=== PATIENT | female | born 1950 | race Caucasian/White ===

== ENCOUNTER 2020-08-22 16:11 | Outpatient (REF) | payer MEDICARE, BC, SELFPAY ==
--- NOTE | 2020-08-22 16:21 | XR_ITS ---
EXAMINATION: XR ANKLE, RIGHT CLINICAL INFORMATION: Right ankle pain COMPARISON: None TECHNIQUE: AP, lateral, and mortise views of the right ankle. FINDINGS: No fracture or dislocation. The ankle mortise is congruent. Corticated ossification at the tip of the lateral malleolus. Mild lateral soft tissue swelling. No ankle joint effusion. Small Achilles heel spur. XR/XR ankle RT min 3V IMPRESSION: Evidence of chronic trauma at the lateral malleolus with corticated ossific density. Mild lateral soft tissue swelling. No acute abnormality. No significant arthritic changes otherwise.
--- NOTE | 2020-08-22 16:21 | XR_ITS ---
EXAMINATION: XR KNEE, LEFT CLINICAL INFORMATION: Left knee pain COMPARISON: None TECHNIQUE: Four views of the left knee. This includes AP upright view. FINDINGS: There is no acute fracture or subluxation. There is moderate lateral compartment joint space narrowing. Prominent tricompartmental marginal osteophytes are present. Moderate joint effusion. XR/XR knee LT 4V IMPRESSION: Joint effusion present. Tricompartmental degenerative changes with osteophyte formation. Moderate lateral compartment narrowing.
== END 2020-08-22 16:12 | disposition home or self-care (01) ==
LOC: HO.XRAY 16:11
PROVIDERS: PCP Internal Medicine; Visit Provider Internal Medicine
DX: M25.561 Pain in right knee (principal); M25.571 Pain in right ankle and joints of right foot
CPT/HCPCS: 73564; 73610

== ENCOUNTER → 2020-09-13 13:55 | Outpatient (BNVA) | payer MEDICARE, BC, SELFPAY | PROVIDERS: PCP Internal Medicine; Visit Provider Physician Assistant | DX: M19.071 Primary osteoarthritis, right ankle and foot (principal); M17.12 Unilateral primary osteoarthritis, left knee | CPT/HCPCS: 99202 ==

== ENCOUNTER 2021-01-03 14:25 | Outpatient (REF) | payer MEDICARE, BC, SELFPAY ==
[2021-01-03 16:23] LABS: MANUAL DIFF FLAG NO
[2021-01-03 16:35] LABS: Basophils Percent Auto 0.6 % (0-2); Eosinophils Absolute Auto 0.3 X10*3/uL (0.0-0.4); Eosinophils Percent Auto 4.3 % (0-4); Hematocrit 42.9 % (37-47); Hemoglobin 13.9 g/dl (12.0-16.0); Imm Gran Abs Auto 0.02 X10*3/uL (0.00-0.03); Imm Gran Pct Auto 0.3 % (0.0-0.4); Lymphocytes Absolute Auto 2.1 X10*3/uL (1.2-4.9); Lymphocytes Percent Auto 31.3 % (20-40); Mean Corpuscular HGB Conc 32.4 g/dl (31.0-35.0); Mean Corpuscular Volume 95.8 fL (80-98); Monocytes Absolute Auto 0.6 X10*3/uL (0.1-1.2); Monocytes Percent Auto 8.8 % (2-11); Neutrophils Absolute Auto 3.7 X10*3/uL (2.0-8.3); Neutrophils Percent Auto 54.7 % (45-73); Platelet Count 251 X10*3/uL (160-400); Red Blood Count 4.48 X10*6/uL (4.20-5.50); Red Cell Distribution Width 13.7 % (11.0-16.0); White Blood Count 6.8 X10*3/uL (4.8-10.8)
[2021-01-03 16:51] LABS: Alanine Aminotransferase 21 U/L (0-31); Albumin Level 4.4 g/dL (3.5-5.0); Alkaline Phosphatase 55 U/L (39-117); Anion Gap 11 (12-20); Aspartate Amino Transferase 16 U/L (5-31); Bilirubin Total 0.3 mg/dL (0.0-1.0); Blood Urea Nitrogen 14 mg/dL (9-16); Calcium 9.2 mg/dL (8.4-10.2); Carbon Dioxide 31 mmol/L (22-29); Chloride 104 mmol/L (96-108); Estimated Glomerular Filt Rate > 60; Glucose Random 84 mg/dL (60-115); Potassium 4.9 mmol/L (3.3-5.1); Sodium 141 mmol/L (135-145); Total Protein 7.7 g/dL (6.5-8.0)
[2021-01-03 17:14] LABS: Free T4 (Free Thyroxine) 1.05 ng/dL (0.71-1.85); Thyroid Stimulating Hormone 2.11 uIU/mL (0.32-4.0)
[2021-01-03 17:18] LABS: Vitamin B12 295 pg/mL (200-900)
== END 2021-01-03 14:26 | disposition home or self-care (01) ==
LOC: HO.HMGCLDS 14:25
PROVIDERS: PCP Internal Medicine; Visit Provider Internal Medicine
DX: I10 Essential (primary) hypertension (principal); E03.9 Hypothyroidism, unspecified; E78.00 Pure hypercholesterolemia, unspecified; R53.83 Other fatigue
CPT/HCPCS: 36415; 80053; 82607; 84439; 84443; 85025

== ENCOUNTER 2021-07-01 09:18 | Outpatient (REF) | payer MEDICARE, BC, SELFPAY ==
[2021-07-01 11:17] LABS: MANUAL DIFF FLAG NO
[2021-07-01 11:31] LABS: Basophils Absolute Auto 0.1 X10*3/uL (0.0-0.2); Eosinophils Absolute Auto 0.2 X10*3/uL (0.0-0.4); Eosinophils Percent Auto 4.6 % (0-4); Hematocrit 44.4 % (37-47); Hemoglobin 14.5 g/dl (12.0-16.0); Imm Gran Abs Auto 0.02 X10*3/uL (0.00-0.03); Imm Gran Pct Auto 0.4 % (0.0-0.4); Lymphocytes Absolute Auto 2.1 X10*3/uL (1.2-4.9); Lymphocytes Percent Auto 39.2 % (20-40); Mean Corpuscular HGB Conc 32.7 g/dl (31.0-35.0); Mean Corpuscular Hemoglobin 30.8 pg (27.0-33.0); Mean Corpuscular Volume 94.3 fL (80-98); Mean Platelet Volume 10.1 fL (9.4-12.3); Monocytes Absolute Auto 0.5 X10*3/uL (0.1-1.2); Monocytes Percent Auto 8.9 % (2-11); Neutrophils Absolute Auto 2.4 X10*3/uL (2.0-8.3); Neutrophils Percent Auto 45.9 % (45-73); Platelet Count 257 X10*3/uL (160-400); Red Blood Count 4.71 X10*6/uL (4.20-5.50); Red Cell Distribution Width 13.3 % (11.0-16.0); White Blood Count 5.3 X10*3/uL (4.8-10.8)
[2021-07-01 11:52] LABS: Alanine Aminotransferase 22 U/L (0-31); Albumin Level 4.3 g/dL (3.5-5.0); Alkaline Phosphatase 50 U/L (39-117); Anion Gap 12 (12-20); Aspartate Amino Transferase 17 U/L (5-31); Bilirubin Total 0.7 mg/dL (0.0-1.0); Blood Urea Nitrogen 8 mg/dL (9-16); Calcium 9.3 mg/dL (8.4-10.2); Carbon Dioxide 27 mmol/L (22-29); Chloride 106 mmol/L (96-108); Cholesterol 157 mg/dL; Estimated Glomerular Filt Rate > 60; Glucose Fasting 118 mg/dL (60-99); HDL Cholesterol 48 mg/dL; LDL Cholesterol Calculated 95 mg/dl; Potassium 4.8 mmol/L (3.3-5.1); Sodium 140 mmol/L (135-145); Total Protein 7.5 g/dL (6.5-8.0); Triglycerides 72 mg/dL
[2021-07-01 12:16] LABS: Free T4 (Free Thyroxine) 1.21 ng/dL (0.71-1.85); Thyroid Stimulating Hormone 2.17 uIU/mL (0.32-4.0); Vitamin D 25-OH Total 50.7 ng/mL (>30)
== END 2021-07-01 09:19 | disposition home or self-care (01) ==
LOC: HO.HMGCLDS 09:18
PROVIDERS: PCP Internal Medicine; Visit Provider Internal Medicine
DX: I10 Essential (primary) hypertension (principal); E78.00 Pure hypercholesterolemia, unspecified; E03.9 Hypothyroidism, unspecified; E55.9 Vitamin D deficiency, unspecified
CPT/HCPCS: 36415; 80053; 80061; 82306; 84439; 84443; 85025

== ENCOUNTER 2021-12-26 15:11 | Outpatient (REF) | payer MEDICARE, BC, SELFPAY ==
[2021-12-26 16:35] LABS: MANUAL DIFF FLAG NO
[2021-12-26 16:42] LABS: Basophils Absolute Auto 0.1 X10*3/uL (0.0-0.2); Basophils Percent Auto 0.7 % (0-2); Eosinophils Absolute Auto 0.3 X10*3/uL (0.0-0.4); Eosinophils Percent Auto 3.8 % (0-4); Hematocrit 43.3 % (37.0-47.0); Hemoglobin 14.1 g/dl (12.0-16.0); Imm Gran Abs Auto 0.02 X10*3/uL (0.00-0.03); Imm Gran Pct Auto 0.3 % (0.0-0.4); Lymphocytes Absolute Auto 2.4 X10*3/uL (1.2-4.9); Lymphocytes Percent Auto 33.2 % (20-40); Mean Corpuscular HGB Conc 32.6 g/dl (31.0-35.0); Mean Corpuscular Hemoglobin 31.3 pg (27.0-33.0); Mean Corpuscular Volume 96.2 fL (80.0-98.0); Mean Platelet Volume 9.9 fL (9.4-12.3); Monocytes Absolute Auto 0.5 X10*3/uL (0.1-1.2); Monocytes Percent Auto 6.8 % (2-11); Neutrophils Absolute Auto 4.1 x10*3/uL (2.0-8.3); Neutrophils Percent Auto 55.2 % (45-73); Platelet Count 241 X10*3/uL (160-400); Red Cell Distribution Width 13.6 % (11.0-16.0); White Blood Count 7.4 X10*3/uL (4.8-10.8)
[2021-12-26 17:11] LABS: Alanine Aminotransferase 16 U/L (0-31); Albumin Level 4.3 g/dL (3.5-5.0); Alkaline Phosphatase 53 U/L (39-117); Anion Gap 13 (12-20); Aspartate Amino Transferase 16 U/L (5-31); Bilirubin Total 0.6 mg/dL (0.0-1.0); Blood Urea Nitrogen 13 mg/dL (9-16); C Reactive Protein 0.08 mg/dL (< or = 0.50); Calcium 9.5 mg/dL (8.4-10.2); Carbon Dioxide 28 mmol/L (22-29); Chloride 105 mmol/L (96-108); Estimated Glomerular Filt Rate > 60; Glucose Random 152 mg/dL (60-115); Potassium 4.5 mmol/L (3.3-5.1); Sodium 141 mmol/L (135-145); Total Protein 7.7 g/dL (6.5-8.0)
[2021-12-26 17:20] LABS: Erythrocyte Sedimentation Rate 40 MM/HR (0-20)
[2021-12-26 17:31] LABS: Free T4 (Free Thyroxine) 1.04 ng/dL (0.71-1.85); Thyroid Stimulating Hormone 2.43 uIU/mL (0.32-4.0)
[2021-12-26 17:39] LABS: Vitamin B12 281 pg/mL (200-900)
== END 2021-12-26 15:12 | disposition home or self-care (01) ==
LOC: HO.HMGCLDS 15:11
PROVIDERS: PCP Internal Medicine; Visit Provider Internal Medicine
DX: R53.83 Other fatigue (principal); E03.9 Hypothyroidism, unspecified; I10 Essential (primary) hypertension
CPT/HCPCS: 36415; 80053; 82607; 84439; 84443; 85025; 85652; 86140

== ENCOUNTER 2022-01-03 09:50 | Outpatient (REF) | payer MEDICARE, BC, SELFPAY ==
[2022-01-03 11:54] LABS: Anion Gap 10 (12-20); Blood Urea Nitrogen 11 mg/dL (9-16); Calcium 9.4 mg/dL (8.4-10.2); Carbon Dioxide 30 mmol/L (22-29); Chloride 107 mmol/L (96-108); Estimated Glomerular Filt Rate > 60; Glucose Random 112 mg/dL (60-115); Potassium 4.9 mmol/L (3.3-5.1); Sodium 142 mmol/L (135-145)
[2022-01-03 11:59] LABS: Estimated Average Glucose 120 mg/dL; Hemoglobin A1c % 5.8 %
== END 2022-01-03 09:51 | disposition home or self-care (01) ==
LOC: HO.HMGCLDS 09:50
PROVIDERS: Visit Provider Internal Medicine
DX: R73.03 Prediabetes (principal)
CPT/HCPCS: 36415; 80048; 83036

== ENCOUNTER 2022-02-14 14:20 | Outpatient (REF) | payer MEDICARE, BC, SELFPAY ==
[2022-02-14 16:50] LABS: Estimated Average Glucose 126 mg/dL; Hemoglobin A1C 152.1498 umol/L
[2022-02-14 17:05] LABS: Anion Gap 9 (12-20); Blood Urea Nitrogen 14 mg/dL (9-16); Calcium 9.4 mg/dL (8.4-10.2); Carbon Dioxide 27 mmol/L (22-29); Chloride 107 mmol/L (96-108); Estimated Glomerular Filt Rate > 60; Glucose Random 82 mg/dL (60-115); Potassium 4.1 mmol/L (3.3-5.1); Sodium 139 mmol/L (135-145)
== END 2022-02-14 14:21 | disposition home or self-care (01) ==
LOC: HO.HMGCLDS 14:20
PROVIDERS: Visit Provider Internal Medicine
DX: R73.03 Prediabetes (principal)
CPT/HCPCS: 36415; 80048; 83036

== ENCOUNTER 2022-03-21 10:56 | Outpatient (REF) | payer MEDICARE, BC, SELFPAY ==
[2022-03-21 15:45] LABS: Alanine Aminotransferase 16 U/L (0-31); Albumin Level 4.3 g/dL (3.5-5.0); Alkaline Phosphatase 54 U/L (39-117); Anion Gap 11 (12-20); Aspartate Amino Transferase 15 U/L (5-31); Bilirubin Total 0.5 mg/dL (0.0-1.0); Blood Urea Nitrogen 13 mg/dL (9-16); Calcium 8.8 mg/dL (8.4-10.2); Carbon Dioxide 29 mmol/L (22-29); Chloride 105 mmol/L (96-108); Estimated Glomerular Filt Rate > 60; Glucose Random 124 mg/dL (60-115); Potassium 4.7 mmol/L (3.3-5.1); Rheumatoid Factor < 15.0 IU/mL (<15.0); Sodium 140 mmol/L (135-145); Total Protein 7.7 g/dL (6.5-8.0)
[2022-03-21 15:48] LABS: Estimated Average Glucose 120 mg/dL; Hemoglobin A1c % 5.8 %
[2022-03-21 16:00] LABS: Erythrocyte Sedimentation Rate 57 MM/HR (0-20)
[2022-03-21 16:05] LABS: Thyroid Stimulating Hormone 2.58 uIU/mL (0.32-4.0)
[2022-03-24 14:03] LABS: Anti Nuclear Antibody Screen NEGATIVE (NEGATIVE)
== END 2022-03-21 10:57 | disposition home or self-care (01) ==
LOC: HO.HMGCLDS 10:56
PROVIDERS: PCP Internal Medicine; Visit Provider Internal Medicine
DX: E03.9 Hypothyroidism, unspecified (principal); I10 Essential (primary) hypertension; R53.83 Other fatigue; R73.03 Prediabetes
CPT/HCPCS: 36415; 80053; 83036; 84439; 84443; 85652; 86038; 86039; 86431

== ENCOUNTER 2022-05-21 15:25 | Outpatient (REF) | payer MEDICARE, BC, SELFPAY ==
[2022-05-21 17:03] LABS: Estimated Average Glucose 126 mg/dL
[2022-05-21 17:33] LABS: Erythrocyte Sedimentation Rate 25 MM/HR (0-20)
== END 2022-05-21 15:26 | disposition home or self-care (01) ==
LOC: HO.HMGCLDS 15:25
PROVIDERS: PCP Internal Medicine; Visit Provider Internal Medicine
DX: I10 Essential (primary) hypertension (principal); R53.83 Other fatigue; E03.9 Hypothyroidism, unspecified
CPT/HCPCS: 36415; 80048; 83036; 84439; 84443; 85025; 85652; 86140

== ENCOUNTER 2022-05-23 11:04 | Outpatient (REF) | payer MEDICARE, BC, SELFPAY ==
[2022-05-23 13:54] LABS: MANUAL DIFF FLAG NO
[2022-05-23 14:01] LABS: Basophils Percent Auto 0.5 % (0-2); Eosinophils Absolute Auto 0.2 X10*3/uL (0.0-0.4); Hemoglobin 13.8 g/dl (12.0-16.0); Imm Gran Abs Auto 0.03 X10*3/uL (0.00-0.03); Imm Gran Pct Auto 0.4 % (0.0-0.4); Lymphocytes Absolute Auto 2.4 X10*3/uL (1.2-4.9); Lymphocytes Percent Auto 32.9 % (20-40); Mean Corpuscular HGB Conc 32.9 g/dl (31.0-35.0); Mean Corpuscular Hemoglobin 30.9 pg (27.0-33.0); Monocytes Absolute Auto 0.4 X10*3/uL (0.1-1.2); Monocytes Percent Auto 5.6 % (2-11); Neutrophils Absolute Auto 4.2 x10*3/uL (2.0-8.3); Neutrophils Percent Auto 57.6 % (45-73); Platelet Count 237 X10*3/uL (160-400); Red Blood Count 4.47 X10*6/uL (4.20-5.50); Red Cell Distribution Width 13.8 % (11.0-16.0); White Blood Count 7.3 X10*3/uL (4.8-10.8)
== END 2022-05-23 11:05 | disposition home or self-care (01) ==
LOC: HO.HMGCLDS 11:04
PROVIDERS: PCP Internal Medicine; Visit Provider Internal Medicine
DX: I10 Essential (primary) hypertension (principal); R53.83 Other fatigue; E03.9 Hypothyroidism, unspecified
CPT/HCPCS: 36415; 85025

== ENCOUNTER 2022-09-11 10:22 | Outpatient (REF) | payer MEDICARE, BC, SELFPAY ==
[2022-09-11 14:12] LABS: MANUAL DIFF FLAG NO
[2022-09-11 14:35] LABS: Basophils Percent Auto 0.5 % (0-2); Eosinophils Absolute Auto 0.2 X10*3/uL (0.0-0.4); Eosinophils Percent Auto 2.7 % (0-4); Hematocrit 45.2 % (37.0-47.0); Hemoglobin 14.8 g/dl (12.0-16.0); Imm Gran Abs Auto 0.02 X10*3/uL (0.00-0.03); Imm Gran Pct Auto 0.3 % (0.0-0.4); Lymphocytes Absolute Auto 1.3 X10*3/uL (1.2-4.9); Lymphocytes Percent Auto 17.5 % (20-40); Mean Corpuscular HGB Conc 32.7 g/dl (31.0-35.0); Mean Corpuscular Hemoglobin 31.2 pg (27.0-33.0); Mean Corpuscular Volume 95.2 fL (80.0-98.0); Monocytes Absolute Auto 0.4 X10*3/uL (0.1-1.2); Monocytes Percent Auto 4.6 % (2-11); Neutrophils Absolute Auto 5.6 x10*3/uL (2.0-8.3); Neutrophils Percent Auto 74.4 % (45-73); Platelet Count 240 X10*3/uL (160-400); Red Blood Count 4.75 X10*6/uL (4.20-5.50); Red Cell Distribution Width 13.1 % (11.0-16.0); White Blood Count 7.5 X10*3/uL (4.8-10.8)
[2022-09-11 14:45] LABS: Estimated Average Glucose 123 mg/dL; Hemoglobin A1c % 5.9 %
[2022-09-11 15:06] LABS: Alanine Aminotransferase 15 U/L (0-31); Albumin Level 4.4 g/dL (3.5-5.0); Alkaline Phosphatase 51 U/L (39-117); Anion Gap 10 (12-20); Aspartate Amino Transferase 16 U/L (5-31); Bilirubin Total 0.6 mg/dL (0.0-1.0); Blood Urea Nitrogen 12 mg/dL (9-16); C Reactive Protein < 0.04 mg/dL (< or = 0.50); Calcium 9.2 mg/dL (8.4-10.2); Carbon Dioxide 27 mmol/L (22-29); Chloride 108 mmol/L (96-108); Estimated Glomerular Filt Rate > 60; Free T4 (Free Thyroxine) 1.16 ng/dL (0.71-1.85); Glucose Random 106 mg/dL (60-115); Magnesium 2.1 mg/dL (1.6-2.6); Sodium 141 mmol/L (135-145); Thyroid Stimulating Hormone 1.48 uIU/mL (0.32-4.0); Total Protein 7.3 g/dL (6.5-8.0)
[2022-09-11 15:12] LABS: Erythrocyte Sedimentation Rate 25 MM/HR (0-20)
== END 2022-09-11 10:23 | disposition home or self-care (01) ==
LOC: HO.10HDL 10:22
PROVIDERS: Visit Provider Internal Medicine
DX: R00.2 Palpitations (principal); I10 Essential (primary) hypertension; E03.9 Hypothyroidism, unspecified; R73.03 Prediabetes; M35.3 Polymyalgia rheumatica
CPT/HCPCS: 36415; 80053; 83036; 83735; 84439; 84443; 85025; 85652; 86140

== ENCOUNTER → 2022-10-08 14:49 | Outpatient (REF) | payer MEDICARE, BC, SELFPAY ==
--- NOTE | 2022-10-08 14:53 | CA_ITS ---
Transthoracic Echocardiogram Patient (Last, First, Middle): Harriet Pan, Gender: Female Date of : 1950 Age: 72 Procedure Date: 10/08/2022 Procedure Type: Transthoracic Echocardiogram Location: OP Height: 167.64 cm Weight: 79.29 kg BSA: 1.89 m2 Heart Rate: 70 bpm BP: 135 / 80 mmHg [employer]: [employer] Referring MD: Gordon Gonzalez MD Symptoms: I49.9 CARDIAC ARRHYTHMIA Study Quality: Adequate ECG Rhythm: Arrhythmia Conclusions: - The left ventricular systolic function is normal. The visually estimated ejection fraction is between 55-60%. - No obvious valvular pathology seen on this study. Findings Left Ventricle Normal left ventricular cavity size. There is normal left ventricular wall thickness. The left ventricular systolic function is normal. The visually estimated ejection fraction is between 55-60%. Diastolic function is normal for age. Due to poor endocardial definition, difficult to assess wall motion but no overt abnormality. Right Ventricle Normal right ventricular cavity size and systolic function. Atria Both atria are normal in size. Aortic Valve There is a normal trileaflet aortic valve. There is no aortic valve stenosis. There is no aortic valve regurgitation. Mitral Valve The mitral valve appears normal. There is trace mitral valve regurgitation. There is no mitral valve stenosis. Pulmonic Valve The pulmonic valve is likely normal. Tricuspid Valve There is trace tricuspid valve regurgitation. Tricuspid regurgitation envelope is inadequate for calculation of right ventricular systolic pressure. Great Vessels The asc aorta is normal in size. Venous The inferior vena cava is normal in size and collapses greater than 50% with inspiration. Pericardium/Pleural There is no evidence of pericardial effusion. Prior Study Comparison No prior study available for comparison. Recommendations, Care & Conclusions No obvious valvular pathology seen on this study. Recommend contrast in the future to improve endocardial definition. Measurements 2D Linear Measurements IVSd: 0.81 0.6-0.9/0.6-1.0 cm LVIDd: 4.20 3.9-5.3/4.2-5.9 cm LVIDd Index: 2.22 2.4-3.2/2.2-3.1 cm/m2 LVIDs: 2.67 2.0-3.6 cm LVPWd: 0.78 0.7-1.1 cm LA Diam: 3.20 2.7-3.8/3.0-4.0 cm LAIDs Index: 1.69 1.5-2.3 cm/m2 LV Mass: 124.71 67-162/88-224 g LV Mass Index: 65.99 43-95/49-115 g/m2 LVOT Diam: 1.90 3.0+(-)1.3 cm 2D Systolic Function EF 4C: 52.30 >55% EF 2C: 54.10 >55% EF BiP: 52.90 >55% Mitral Valve MV Pk E: 0.59 MV PK A: 0.70 MV Decel Time: 269.00 E/A: 0.80 E'Lateral: 5.44 E'Medial: 6.20 E/E' Med: 9.50 E/E' Lat: 10.90 PHT: 79.00 MVA PHT: 2.78 Decel [place]: 2.20 Aortic Valve AoV Pk Omar: 1.16 AoV Mn Omar: 0.77 AoV VTI: 0.25 AoV Pk Grad: 5.00 Aov Mn Grad: 3.00 KEITH Cont.VTI: 2.09 LVOT LVOT Pk Omar: 0.95 LVOT Mn Omar: 0.61 LVOT VTI: 0.18 LVOT Pk Grad: 4.00 LVOT Mn Grad: 2.00 LVOT Diam: 1.90 LVOT Area: 2.84 Diastolic Function MV Pk E: 0.59 MV Pk A: 0.70 E/A: 0.80 E'Medial: 6.20 E/E' Med: 9.50 E' Laterial: 5.44 E/E' Lat: 10.90 Right Ventricle TAPSE (mm): 15.70 TVS' Omar: 13.90 Tricuspid Valve RA Press: 3.00 Great Vessels Aorta Sinus of Valsalva: 3.00 2.0-3.5 cm Ao Asc: 3.20 2.1-3.4 cm Pulmonary Valve PV Pk Omar: 0.81 Peak PV Grad: 3.00 Updated in Other Vendor System with Status of Final Phani Paris MD electronically signed on 10/10/2022 12:21:39 PM with status of Final
== END ==
LOC: HO.CARD 14:49
PROVIDERS: Visit Provider Internal Medicine
DX: I49.9 Cardiac arrhythmia, unspecified (principal)
CPT/HCPCS: 93306

== ENCOUNTER 2022-12-02 07:56 | Emergency (ER) | payer MEDICARE, BC, SELFPAY ==
[2022-12-02 08:02] VITALS: BP 116/72; PULSE 90; O2SAT 98
[2022-12-02 08:06] VITALS: BP 137/86; PULSE 103; RESP 16; TEMP 37.3; O2SAT 94; BMI 27.4
--- NOTE | 2022-12-02 08:30 | ED.NAVMDI ---
HPI - Nausea/Vomiting/Diarrhea General Chief complaint: Nausea/Vomiting/Diarrhea Stated complaint: N/V/D FOR HOURS PER EMS Time Seen by Provider: 12/02/22 08:05 Source: patient Mode of arrival: EMS Limitations: no limitations History of Present Illness HPI Narrative: Pt is a 72y/o female with PMHx of hypothyroidism, mitral valve prolapse, polymyalgia presenting with vomiting and diarrhea. Pt states her symptoms began around 2am this morning. Pt states she has vomited 4 times and had multiple episodes of liquid stool. Pt states she has a fullness feeling in her belly but denies pain. Pt denies blood in stool or vomit. Pt denies fevers.Pt denies sick contacts but does state that she lives with her son who works in a [place] [facility] [place] [facility]. Pt denies recent travel, antibiotic use, hospitalizations. Associated nausea: Yes Related Data Home Medications Medication Instructions Recorded Confirmed atenolol 25 mg tablet 25 mg PO DAILY 09/13/20 levothyroxine 25 mcg tablet 25 mcg PO DAILY 09/13/20 (Synthroid) rosuvastatin 10 mg tablet 10 mg PO DAILY 09/13/20 Previous Rx's Medication Instructions Recorded ondansetron 4 mg disintegrating 4 mg PO Q6H PRN nausea and 12/02/22 tablet vomiting #10 tabs Allergies Allergy/AdvReac Type Severity Reaction Status Date / Time No Known Allergies Allergy Verified 09/13/20 14:00 Review of Systems Review of Systems: Yes all other systems are reviewed and are negative Constitutional: Constitutional: Reports no additional constitutional complaints, Denies body ache(s), Denies chills, Denies fever(s), Denies headache(s) and Denies weakness Eyes: Eyes: Reports no additional eye complaints and Denies change in vision ENT: Reports system reviewed and no additional complaints, except as documented, Denies dizziness, Denies headache(s), Denies nasal congestion, Denies nasal discharge and Denies neck pain Cardiovascular: Cardiovascular: Reports no additional cardiovascular complaints, Denies chest pain, Denies leg edema and Denies dyspnea Respiratory: Respiratory: Reports no additional respiratory complaints, Denies cough and Denies dyspnea Gastrointestinal: Gastrointestinal: Reports no additional gastrointestinal complaints, Denies abdominal pain, Denies hematochezia, Reports diarrhea, Reports nausea, Reports vomiting and Denies hematemesis Genitourinary: Genitourinary: Reports no additional female genitourinary complaints and Denies dysuria Musculoskeletal: Musculoskeletal: Reports no additional musculoskeletal complaints, Denies back pain and Denies neck pain Integumentary/Breasts: Skin/Breast: Reports system reviewed and no additional complaints, except as docu and Denies rash Neurologic: Reports system reviewed and no additional complaints, except as documented, Denies dizziness, Denies headache(s) and Denies weakness PMFSH Past Medical History Attestation statement: The following information was validated with the patient. Source: old records reviewed and nursing notes reviewed Medical History Arrhythmia Hypothyroid Surgical History Hx of tonsillectomy Social History Social History Advance Directives: No Advance Directives Information Provided: Yes Current occupational status: retired Physical Exam Vital Signs: Vital Signs: Last Vital Signs Temp 99.1 F 12/02/22 08:06 Pulse 103 H 12/02/22 08:06 Resp 16 12/02/22 08:06 BP 137/86 12/02/22 08:06 Pulse Ox 94 12/02/22 08:06 O2 Del Method 12/02/22 08:06 BMI result Body Mass Index 27.4 Const: General: cooperative, healthy appearing, comfortable and no acute distress Orientation/consciousness: patient oriented x3 Limitations: no limitations HEENT: Head: Yes normal to inspection Ears: hearing grossly normal bilaterally General nose exam: Normal external nose present Face and sinus: Yes normal facial exam Mouth: Normal oral and palatal mucosa present Eyes: General: appearance normal, both eyes and all related structures Pupils: Equal, round and reactive pupils present Neck: Neck: Yes normal visual inspection and Yes full ROM Chest: Chest palpation & inspection: normal inspection of the chest Resp: Effort & Inspection: normal respiratory effort Auscultation: clear to auscultation bilaterally Cardio: Rate: regular rate Rhythm: regular rhythm Peripheral pulses: Peripheral pulses 2+ throughout GI: Inspection: Yes normal to inspection Palpation (GI): Soft to palpation and nontender Auscultation: normal bowel sounds Skin: General skin exam: no rashes or lesions noted Neuro: General: patient oriented x3 and moves all extremities Cranial nerves: Yes Equal, round and reactive pupils present Cognition (Neuro): normal cognition Extrem: General: Yes normal to inspection Course Course Course Narrative: Labs show mild leukocytosis with no shift. Viral testing is negative. Patient is tolerating p.o. with no additional vomiting episodes. Repeat abdominal exam is unchanged. No focal abdominal pain on exam. Patient did have additional episode of diarrhea here. Likely gastroenteritis. Son is at the bedside reports he has had similar symptoms. Recommend supportive care at home with Zofran p.r.n., increasing fluids. Reviewed worrisome signs and symptoms of when to return to the emergency room. Comfortable plan for discharge home. Medications Administered Discontinued Medications Generic Name Dose Route Start Last Admin Trade Name Freq PRN Reason Stop Dose Admin Ondansetron HCl 4 mg 12/02/22 08:28 12/02/22 10:45 Ondansetron Odt 4 Mg Tab.Rapdis TRANSLINGU 12/02/22 08:29 4 mg ONCE ONE Administration Medical Decision Making Medical Decision Making [facility] Narrative: 72y/o female with PMH of hypothyroidism, mitral valve prolapse, polymyalgia presenting with vomiting and diarrhea for 6 hours, no focal abdominal pain, no fever, overall nontoxic appearing. Likely viral syndrome. Will obtain labs, viral testing and give antiemetic with po challenge following. Less likely c diff colitis (no recent antibiotics, no recent hospitalizations or travel), diverticulitis, appendicitis, infectious diarrhea Differential Diagnosis Differential Diagnoses: The differential diagnosis associated with the presentation includes see above Lab Data [facility] Lab Attestation statement: I reviewed the patient's lab results. 12/02/22 08:51 12/02/22 08:51 Labs: Lab Results 12/02/22 12/02/22 12/02/22 Range/Units 08:51 08:51 08:51 WBC 13.1 H (4.8-10.8) X10*3/uL RBC 4.86 (4.20-5.50) X10*6/uL Hgb 15.0 (12.0-16.0) g/dl Hct 45.4 (37.0-47.0) % MCV 93.4 (80.0-98.0) fL MCH 30.9 (27.0-33.0) pg MCHC 33.0 (31.0-35.0) g/dl RDW 13.3 (11.0-16.0) % Plt Count 209 (160-400) X10*3/uL MPV 9.4 (9.4-12.3) fL Immature Gran % (Auto) 0.3 (0.0-0.4) % Neut % (Auto) 93.2 H (45-73) % Lymph % (Auto) 2.7 L (20-40) % [place] % (Auto) 3.1 (2-11) % Eos % (Auto) 0.5 (0-4) % Baso % (Auto) 0.2 (0-2) % Lymph # (Auto) 0.4 L (1.2-4.9) X10*3/uL [place] # (Auto) 0.4 (0.1-1.2) X10*3/uL Eos # (Auto) 0.1 (0.0-0.4) X10*3/uL Baso # (Auto) 0.0 (0.0-0.2) X10*3/uL Abs Immat Gran (auto) 0.04 H (0.00-0.03) X10*3/uL Absolute Neuts (auto) 12.2 H (2.0-8.3) x10*3/uL Absolute Nucleated RBC 0.000 (0.0-0.012) X10*3/uL Nucleated RBC % (auto) 0.0 (0.0-0.2) /100WBC Smear Tech's Comments VERIFIED Sodium 142 (135-145) mmol/L Potassium 4.9 D (3.3-5.1) mmol/L Chloride 108 (96-108) mmol/L Carbon Dioxide 25 (22-29) mmol/L Anion Gap 14 (12-20) BUN 12 (9-16) mg/dL Creatinine 0.81 (0.5-1.4) mg/dL Estim Creat Clear Calc 64.9 Estimated GFR > 60 Random Glucose 138 H (60-115) mg/dL Calcium 9.4 (8.4-10.2) mg/dL Total Bilirubin 0.9 (0.0-1.0) mg/dL Direct Bilirubin 0.2 (0.0-0.5) mg/dL AST 18 (5-31) U/L ALT 17 (0-31) U/L Alkaline Phosphatase 53 (39-117) U/L Total Protein 7.6 (6.5-8.0) g/dL Albumin 4.3 (3.5-5.0) g/dL Influenza Type A (PCR) NEGATIVE (Negative) Influenza Type B (PCR) NEGATIVE (Negative) RSV RNA Qual (PCR) NEGATIVE (Negative) SARS-CoV-2 RNA (RT-PCR) NEGATIVE (Negative) Independent Historian Clinical information obtained from an independent historian. History obtained from or confirmed by: Other (son) Discharge Plan Discharge Clinical Impression: Gastroenteritis Patient Disposition: Home, Self-Care Instructions: Gastroenteritis (ED) Additional Instructions: Your lab work and viral testing are all reassuring You likely have a viral Increase fluids at home. Expect that you may still have some diarrhea or occasional vomiting over the next day or 2. Use and nausea medicine as needed Return for severe pain, fever, multiple episodes of vomiting and inability to tolerate liquids Prescriptions: New ondansetron 4 mg tablet,disintegrating 4 mg PO Q6H PRN (Reason: nausea and vomiting) Qty: 10 0RF Referrals: Gordon Gonzalez MD [Primary Care Provider] - 1 week Interventions: ED Discharge Assessment Last Done: 12/02/22 10:46 Discharge Date/Time: 12/02/22 10:46
[2022-12-02 09:02] LABS: Basophils Percent Auto 0.2 % (0-2); Eosinophils Absolute Auto 0.1 X10*3/uL (0.0-0.4); Eosinophils Percent Auto 0.5 % (0-4); Hematocrit 45.4 % (37.0-47.0); Imm Gran Abs Auto 0.04 X10*3/uL (0.00-0.03); Imm Gran Pct Auto 0.3 % (0.0-0.4); Lymphocytes Absolute Auto 0.4 X10*3/uL (1.2-4.9); Lymphocytes Percent Auto 2.7 % (20-40); MANUAL DIFF FLAG SCAN; Mean Corpuscular Hemoglobin 30.9 pg (27.0-33.0); Mean Corpuscular Volume 93.4 fL (80.0-98.0); Mean Platelet Volume 9.4 fL (9.4-12.3); Monocytes Absolute Auto 0.4 X10*3/uL (0.1-1.2); Monocytes Percent Auto 3.1 % (2-11); Neutrophils Absolute Auto 12.2 x10*3/uL (2.0-8.3); Neutrophils Percent Auto 93.2 % (45-73); Platelet Count 209 X10*3/uL (160-400); Red Blood Count 4.86 X10*6/uL (4.20-5.50); Red Cell Distribution Width 13.3 % (11.0-16.0); SCAN SMEAR FLAG 1; White Blood Count 13.1 X10*3/uL (4.8-10.8)
[2022-12-02 09:20] LABS: Alanine Aminotransferase 17 U/L (0-31); Albumin Level 4.3 g/dL (3.5-5.0); Alkaline Phosphatase 53 U/L (39-117); Anion Gap 14 (12-20); Aspartate Amino Transferase 18 U/L (5-31); Bilirubin Direct 0.2 mg/dL (0.0-0.5); Bilirubin Total 0.9 mg/dL (0.0-1.0); Blood Urea Nitrogen 12 mg/dL (9-16); Calcium 9.4 mg/dL (8.4-10.2); Carbon Dioxide 25 mmol/L (22-29); Chloride 108 mmol/L (96-108); Creatinine Clr Calc Pharmacy 64.9; Estimated Glomerular Filt Rate > 60; Glucose Random 138 mg/dL (60-115); Potassium 4.9 mmol/L (3.3-5.1); Sodium 142 mmol/L (135-145); Total Protein 7.6 g/dL (6.5-8.0)
[2022-12-02 09:29] LABS: SLIDE REVIEW VERIFIED
[2022-12-02 09:57] LABS: Influenza A PCR NEGATIVE (Negative); Influenza B PCR NEGATIVE (Negative); Resp Syncy Virus RNA Qual PCR NEGATIVE (Negative); SARS COV2 PCR INHOUSE NEGATIVE (Negative)
[2022-12-02] MEDS: Ondansetron ODT 4 MG TAB.RAPDIS TRANSLINGU (10:45)
== END 2022-12-02 10:46 | disposition home or self-care (01) ==
PROVIDERS: Nurse Practitioner Family; Emergency Provider Emergency Medicine Emergency Medical Services; PCP Internal Medicine
DX: K52.9 Noninfective gastroenteritis and colitis, unspecified (principal); R11.2 Nausea with vomiting, unspecified; Z20.822 Contact with and (suspected) exposure to COVID-19; Z20.828 Contact with and (suspected) exposure to other viral communicable diseases; Z79.899 Other long term (current) drug therapy
CPT/HCPCS: 0241U; 36415; 80048; 80076; 85025; 99282; 99283

== ENCOUNTER 2022-12-12 15:27 | Outpatient (REF) | payer MEDICARE, BC, SELFPAY ==
[2022-12-12 18:03] LABS: Erythrocyte Sedimentation Rate 45 MM/HR (0-20)
[2022-12-12 18:17] LABS: Anion Gap 14 (12-20); Blood Urea Nitrogen 9 mg/dL (9-16); C Reactive Protein < 0.10 mg/dL (< or = 0.50); Carbon Dioxide 27 mmol/L (22-29); Chloride 106 mmol/L (96-108); Estimated Glomerular Filt Rate > 60; Glucose Random 76 mg/dL (60-115); Potassium 4.4 mmol/L (3.3-5.1); Sodium 143 mmol/L (135-145)
[2022-12-12 18:34] LABS: Free T4 (Free Thyroxine) 1.21 ng/dL (0.71-1.85); Thyroid Stimulating Hormone 1.88 uIU/mL (0.32-4.0)
== END 2022-12-12 15:28 | disposition home or self-care (01) ==
LOC: HO.LAB 15:27
PROVIDERS: PCP Internal Medicine; Visit Provider Internal Medicine
DX: R53.83 Other fatigue (principal); I10 Essential (primary) hypertension; E03.9 Hypothyroidism, unspecified
CPT/HCPCS: 36415; 80048; 84439; 84443; 85652; 86140

== ENCOUNTER 2023-01-21 11:00 | Outpatient (REF) | payer MEDICARE, BC, SELFPAY ==
[2023-01-21 13:41] LABS: MANUAL DIFF FLAG NO
[2023-01-21 13:48] LABS: Basophils Absolute Auto 0.1 X10*3/uL (0.0-0.2); Basophils Percent Auto 0.9 % (0-2); Eosinophils Absolute Auto 0.3 X10*3/uL (0.0-0.4); Eosinophils Percent Auto 4.5 % (0-4); Hematocrit 43.8 % (37.0-47.0); Hemoglobin 14.5 g/dl (12.0-16.0); Imm Gran Abs Auto 0.01 X10*3/uL (0.00-0.03); Imm Gran Pct Auto 0.2 % (0.0-0.4); Lymphocytes Absolute Auto 1.7 X10*3/uL (1.2-4.9); Lymphocytes Percent Auto 30.5 % (20-40); Mean Corpuscular HGB Conc 33.1 g/dl (31.0-35.0); Mean Corpuscular Volume 93.8 fL (80.0-98.0); Mean Platelet Volume 10.1 fL (9.4-12.3); Monocytes Absolute Auto 0.5 X10*3/uL (0.1-1.2); Monocytes Percent Auto 9.2 % (2-11); Neutrophils Percent Auto 54.7 % (45-73); Platelet Count 252 X10*3/uL (160-400); Red Blood Count 4.67 X10*6/uL (4.20-5.50); Red Cell Distribution Width 13.9 % (11.0-16.0); White Blood Count 5.5 X10*3/uL (4.8-10.8)
[2023-01-21 14:28] LABS: Erythrocyte Sedimentation Rate 53 MM/HR (0-20)
== END 2023-01-21 11:01 | disposition home or self-care (01) ==
LOC: HO.10HDL 11:00
PROVIDERS: Visit Provider Internal Medicine
DX: I10 Essential (primary) hypertension (principal); E03.9 Hypothyroidism, unspecified
CPT/HCPCS: 36415; 85025; 85652

== ENCOUNTER 2023-04-26 23:18 | Emergency (ER) | payer MEDICARE, BC, SELFPAY ==
[2023-04-26 23:23] VITALS: BP 160/87; PULSE 88; O2SAT 97
[2023-04-26 23:27] VITALS: BP 165/90; PULSE 80; RESP 18; TEMP 36.7; O2SAT 98; BMI 27.5
--- NOTE | 2023-04-26 23:46 | ED.NAVMDI ---
HPI - Nausea/Vomiting/Diarrhea General Chief complaint: Nausea/Vomiting/Diarrhea Stated complaint: diarrhea Time Seen by Provider: 04/26/23 23:27 Source: patient and EMS Mode of arrival: EMS Limitations: no limitations History of Present Illness HPI Narrative: 73-year-old female came in after having multiple episodes of nonbloody watery diarrhea before coming to the emergency department this started about 1 hour ago, patient was reading a book when she started to have abdominal cramps followed by nonbloody watery diarrhea several times patient called 911 and come to the hospital for evaluation in route and on arrival to the emergency department patient feels much improved with no symptoms. Patient had similar episode in the past 5 months ago with similar presentation was diagnosed with gastroenteritis. Related Data Home Medications Medication Instructions Recorded Confirmed atenolol 25 mg tablet 25 mg PO DAILY 09/13/20 levothyroxine 25 mcg tablet 25 mcg PO DAILY 09/13/20 (Synthroid) rosuvastatin 10 mg tablet 10 mg PO DAILY 09/13/20 Previous Rx's Medication Instructions Recorded ondansetron 4 mg disintegrating 4 mg PO Q6H PRN nausea and 12/02/22 tablet vomiting #10 tabs Allergies Allergy/AdvReac Type Severity Reaction Status Date / Time No Known Allergies Allergy Verified 09/13/20 14:00 Review of Systems Review of Systems: All other systems are reviewed and are negative Constitutional: Reports as per HPI and Reports no additional constitutional complaints Eyes: Reports as per HPI and Reports no additional eye complaints Reports system reviewed and no additional complaints, except as documented Cardiovascular: Reports as per HPI and Reports no additional cardiovascular complaints Respiratory: Reports as per HPI and Reports no additional respiratory complaints Gastrointestinal: Reports as per HPI and Reports no additional gastrointestinal complaints Genitourinary: Reports no additional female genitourinary complaints Musculoskeletal: Reports no additional musculoskeletal complaints Skin/Breast: Reports system reviewed and no additional complaints, except as docu Psychiatric: Reports no additional psychiatric complaints Endocrine: Reports no additional endocrine complaints Hematologic/Lymphatic: Reports no additional hematologic/lymphatic complaints Allergic/Immunologic: Reports no additional allergic/immunologic complaints Reports system reviewed and no additional complaints, except as documented and Reports Abnormal speech present PMFSH Past Medical History Medical History Arrhythmia Hypothyroid Surgical History Hx of tonsillectomy Social History Social History Alcohol intake: never Smoked in Last 30 Days: No Use of substances other than those prescribed or required for medical reasons: No Advance Directives: No Advance Directives Information Provided: Yes Current occupational status: retired Physical Exam Vital Signs: Vital Signs: Last Vital Signs Temp 98.1 F 04/26/23 23:27 Pulse 80 04/26/23 23:27 Resp 18 04/26/23 23:27 BP 165/90 H 04/26/23 23:27 Pulse Ox 98 04/26/23 23:27 O2 Del Method Room Air 04/26/23 23:27 BMI result Body Mass Index 27.5 Vital signs have been reviewed as appeared to be correct. Blood pressure normal. Heart rate normal. Respiration rate normal. Temperature normal. Oxygen saturation normal. Appearance: Alert. Oriented X3. No acute distress. Head: Normal external exam. Normocephalic. Atraumatic. No Waldron signs noted. No raccoon eyes noted Eyes: PERRLA. EOMI. Conjunctiva and sclera normal. Eyelids normal. ENT: TM's Normal. Pharynx normal. Uvula midline. Moist mucous membranes. No trismus noted. No drooling noted. No muffled voice noted. Neck: Normal inspection. Neck supple. FROM. No adenopathy. Thyroid Normal. No meningeal signs. No neck mass noted. CVS: Normal heart rate and rhythm. Heart sound normal. No murmurs noted. Pulses normal throughout. Respiratory: No respiratory distress. Painless inspiration. Breath sounds normal. No wheezes/rales/rhonchi noted. Chest nontender. No accessory muscle usage noted or decreased air movement noted. Abdomen: Soft and nontender. Bowel sounds normal in all 4 quadrants. No distention noted. No organomegaly noted. No visible injury noted. Back: No CVA tenderness. Full range of motion noted. Skin: Skin warm and dry. Normal skin color. Normal skin turgor. No rashes/lesions/lacerations noted. Extremities: No lower extremity edema. Extremities exhibit normal range of motion. Extremities nontender. Neuro: Oriented X 3. Cranial nerve exam: II-XII are grossly intact No motor deficit. No sensory deficit. Reflexes normal. Course Course Course Narrative: Nonbloody watery diarrhea improved in the ED, patient not showing signs of dehydration, no abdominal pain no further workup is needed at this point will discharge and follow up with PCP patient was instructed to discuss with the PCP the need of colonoscopy. Medical Decision Making Differential Diagnosis Differential Diagnoses: The differential diagnosis associated with the presentation includes (Gastroenteritis, food poisoning, abdominal cramps, diarrhea.) Admission/Observation Consideration of admission/observation: Escalation of care including admission/observation considered Discharge Plan Discharge Clinical Impression: Diarrhea Patient Disposition: Home, Self-Care Instructions: Acute Diarrhea (ED) Prescriptions: No Action ondansetron 4 mg tablet,disintegrating 4 mg PO Q6H PRN (Reason: nausea and vomiting) Qty: 10 0RF Referrals: Gordon Gonzalez MD [Primary Care Provider] - Li Abbasi MD [Physician] -
== END 2023-04-26 23:55 | disposition home or self-care (01) ==
PROVIDERS: Emergency Provider Emergency Medicine; PCP Internal Medicine
DX: R19.7 Diarrhea, unspecified (principal)
CPT/HCPCS: 99282; 99284

== ENCOUNTER 2023-04-29 11:33 | Outpatient (REF) | payer MEDICARE, BC, SELFPAY ==
[2023-04-29 13:24] LABS: MANUAL DIFF FLAG NO
[2023-04-29 13:36] LABS: Basophils Absolute Auto 0.1 X10*3/uL (0.0-0.2); Basophils Percent Auto 0.6 % (0-2); Eosinophils Absolute Auto 0.1 X10*3/uL (0.0-0.4); Eosinophils Percent Auto 1.5 % (0-4); Hematocrit 44.1 % (37.0-47.0); Hemoglobin 14.7 g/dl (12.0-16.0); Imm Gran Abs Auto 0.02 X10*3/uL (0.00-0.03); Imm Gran Pct Auto 0.2 % (0.0-0.4); Lymphocytes Absolute Auto 2.3 X10*3/uL (1.2-4.9); Lymphocytes Percent Auto 26.2 % (20-40); Mean Corpuscular HGB Conc 33.3 g/dl (31.0-35.0); Mean Corpuscular Hemoglobin 31.5 pg (27.0-33.0); Mean Corpuscular Volume 94.4 fL (80.0-98.0); Mean Platelet Volume 9.7 fL (9.4-12.3); Monocytes Absolute Auto 0.7 X10*3/uL (0.1-1.2); Monocytes Percent Auto 8.2 % (2-11); Neutrophils Absolute Auto 5.6 x10*3/uL (2.0-8.3); Neutrophils Percent Auto 63.3 % (45-73); Platelet Count 255 X10*3/uL (160-400); Red Blood Count 4.67 X10*6/uL (4.20-5.50); Red Cell Distribution Width 13.4 % (11.0-16.0); White Blood Count 8.8 X10*3/uL (4.8-10.8)
[2023-04-29 13:54] LABS: Alanine Aminotransferase 14 U/L (0-31); Albumin Level 4.4 g/dL (3.5-5.0); Alkaline Phosphatase 51 U/L (39-117); Anion Gap 9 (12-20); Aspartate Amino Transferase 14 U/L (5-31); Bilirubin Total 0.7 mg/dL (0.0-1.0); Blood Urea Nitrogen 12 mg/dL (9-16); C Reactive Protein 0.32 mg/dL (< or = 0.50); Calcium 9.7 mg/dL (8.4-10.2); Carbon Dioxide 30 mmol/L (22-29); Chloride 105 mmol/L (96-108); Estimated Glomerular Filt Rate > 60; Glucose Random 95 mg/dL (60-115); Potassium 4.2 mmol/L (3.3-5.1); Sodium 140 mmol/L (135-145); Total Protein 7.9 g/dL (6.5-8.0)
[2023-04-29 14:21] LABS: Erythrocyte Sedimentation Rate 55 MM/HR (0-20)
== END 2023-04-29 11:34 | disposition home or self-care (01) ==
LOC: HO.10HDL 11:33
PROVIDERS: Visit Provider Internal Medicine
DX: E03.9 Hypothyroidism, unspecified (principal); I10 Essential (primary) hypertension; R00.2 Palpitations; R19.7 Diarrhea, unspecified
CPT/HCPCS: 36415; 80053; 84439; 84443; 85025; 85652; 86140

== ENCOUNTER 2023-07-24 15:48 | Outpatient (REF) | payer MEDICARE, BC, SELFPAY ==
[2023-07-24 16:44] LABS: Eosinophils Percent Auto 0.5 % (0-4); Hemoglobin 13.7 g/dl (12.0-16.0); Monocytes Absolute Auto 0.4 X10*3/uL (0.1-1.2); Monocytes Percent Auto 5.9 % (2-11); PLT CLUMP 1; SCAN SMEAR FLAG 1
[2023-07-24 16:46] LABS: Basophils Percent Auto 0.6 % (0-2); Hematocrit 40.2 % (37.0-47.0); Imm Gran Abs Auto 0.02 X10*3/uL (0.00-0.03); Imm Gran Pct Auto 0.3 % (0.0-0.4); Lymphocytes Absolute Auto 1.4 X10*3/uL (1.2-4.9); Lymphocytes Percent Auto 21.1 % (20-40); MANUAL DIFF FLAG SCAN; Mean Corpuscular HGB Conc 34.1 g/dl (31.0-35.0); Mean Corpuscular Hemoglobin 31.1 pg (27.0-33.0); Mean Corpuscular Volume 91.2 fL (80.0-98.0); Neutrophils Absolute Auto 4.7 x10*3/uL (2.0-8.3); Neutrophils Percent Auto 71.6 % (45-73); Red Blood Count 4.41 X10*6/uL (4.20-5.50); Red Cell Distribution Width 12.8 % (11.0-16.0)
[2023-07-24 16:49] LABS: White Blood Count 6.6 X10*3/uL (4.8-10.8)
[2023-07-24 17:09] LABS: SLIDE REVIEW VERIFIED
[2023-07-24 17:24] LABS: Alanine Aminotransferase 18 U/L (0-31); Albumin Level 4.3 g/dL (3.5-5.0); Alkaline Phosphatase 46 U/L (39-117); Anion Gap 16 (12-20); Aspartate Amino Transferase 17 U/L (5-31); Bilirubin Total 0.3 mg/dL (0.0-1.0); Blood Urea Nitrogen 11 mg/dL (9-16); Calcium 9.9 mg/dL (8.4-10.2); Carbon Dioxide 25 mmol/L (22-29); Chloride 104 mmol/L (96-108); Estimated Glomerular Filt Rate > 60; Glucose Random 113 mg/dL (60-115); Potassium 3.9 mmol/L (3.3-5.1); Sodium 141 mmol/L (135-145); Total Protein 8.4 g/dL (6.5-8.0)
[2023-07-24 17:29] LABS: Erythrocyte Sedimentation Rate 75 MM/HR (0-20)
[2023-07-24 17:39] LABS: Thyroid Stimulating Hormone 1.23 uIU/mL (0.32-4.0)
== END 2023-07-24 15:49 | disposition home or self-care (01) ==
LOC: HO.LAB 15:48
PROVIDERS: PCP Internal Medicine; Visit Provider Internal Medicine
DX: I10 Essential (primary) hypertension (principal); M35.3 Polymyalgia rheumatica; E03.9 Hypothyroidism, unspecified; Z86.16 Personal history of COVID-19
CPT/HCPCS: 36415; 80053; 84439; 84443; 85025; 85652

== ENCOUNTER 2023-10-20 11:50 | Outpatient (REF) | payer MEDICARE, BC, SELFPAY ==
[2023-10-20 12:00] LABS: MANUAL DIFF FLAG NO
[2023-10-20 12:27] LABS: Basophils Absolute Auto 0.1 X10*3/uL (0.0-0.2); Basophils Percent Auto 0.8 % (0-2); Eosinophils Absolute Auto 0.3 X10*3/uL (0.0-0.4); Eosinophils Percent Auto 3.6 % (0-4); Hematocrit 44.7 % (37.0-47.0); Hemoglobin 14.8 g/dl (12.0-16.0); Imm Gran Abs Auto 0.03 X10*3/uL (0.00-0.03); Imm Gran Pct Auto 0.4 % (0.0-0.4); Lymphocytes Absolute Auto 2.5 X10*3/uL (1.2-4.9); Lymphocytes Percent Auto 32.3 % (20-40); Mean Corpuscular HGB Conc 33.1 g/dl (31.0-35.0); Mean Corpuscular Hemoglobin 31.6 pg (27.0-33.0); Mean Corpuscular Volume 95.3 fL (80.0-98.0); Mean Platelet Volume 9.9 fL (9.4-12.3); Monocytes Absolute Auto 0.5 X10*3/uL (0.1-1.2); Monocytes Percent Auto 6.7 % (2-11); Neutrophils Absolute Auto 4.4 x10*3/uL (2.0-8.3); Neutrophils Percent Auto 56.2 % (45-73); Platelet Count 241 X10*3/uL (160-400); Red Blood Count 4.69 X10*6/uL (4.20-5.50); Red Cell Distribution Width 13.8 % (11.0-16.0); White Blood Count 7.8 X10*3/uL (4.8-10.8)
[2023-10-20 13:15] LABS: Erythrocyte Sedimentation Rate 34 MM/HR (0-20)
[2023-10-20 13:17] LABS: Free T4 (Free Thyroxine) 1.17 ng/dL (0.71-1.85)
[2023-10-20 13:18] LABS: Alanine Aminotransferase 12 U/L (0-31); Albumin Level 4.3 g/dL (3.5-5.0); Alkaline Phosphatase 46 U/L (39-117); Anion Gap 10 (12-20); Aspartate Amino Transferase 15 U/L (5-31); Bilirubin Total 0.6 mg/dL (0.0-1.0); Blood Urea Nitrogen 9 mg/dL (9-16); C Reactive Protein < 0.10 mg/dL (< or = 0.50); Calcium 9.9 mg/dL (8.4-10.2); Carbon Dioxide 30 mmol/L (22-29); Chloride 104 mmol/L (96-108); Estimated Glomerular Filt Rate > 60; Glucose Random 94 mg/dL (60-115); Potassium 4.3 mmol/L (3.3-5.1); Sodium 140 mmol/L (135-145); Total Protein 7.9 g/dL (6.5-8.0)
== END 2023-10-20 11:51 | disposition home or self-care (01) ==
LOC: HO.LAB 11:50
PROVIDERS: PCP Internal Medicine; Visit Provider Internal Medicine
DX: I10 Essential (primary) hypertension (principal); E03.9 Hypothyroidism, unspecified
CPT/HCPCS: 36415; 80053; 84439; 84443; 85025; 85652; 86140

== ENCOUNTER 2023-12-30 12:26 | Outpatient (REF) | payer MEDICARE, BC, SELFPAY ==
--- NOTE | ~2023-12-30 | XR_ITS ---
EXAMINATION: XR CHEST CLINICAL INFORMATION: 73-year-old female with hypertension COMPARISON: None available. TECHNIQUE: 2 views of the chest were obtained. FINDINGS: No significant abnormality is noted involving the heart, lungs, mediastinum, bony thorax or soft tissues. XR/XR chest 2V IMPRESSION: Unremarkable examination.
[2023-12-30 13:01] LABS: MANUAL DIFF FLAG NO
[2023-12-30 14:18] LABS: D Dimer High Sensitivity 208 NG/ML
[2023-12-30 14:20] LABS: Basophils Percent Auto 0.7 % (0-2); Eosinophils Absolute Auto 0.2 X10*3/uL (0.0-0.4); Eosinophils Percent Auto 3.9 % (0-4); Hematocrit 42.3 % (37.0-47.0); Hemoglobin 13.9 g/dl (12.0-16.0); Imm Gran Abs Auto 0.02 X10*3/uL (0.00-0.03); Imm Gran Pct Auto 0.4 % (0.0-0.4); Lymphocytes Absolute Auto 2.1 X10*3/uL (1.2-4.9); Lymphocytes Percent Auto 37.5 % (20-40); Mean Corpuscular HGB Conc 32.9 g/dl (31.0-35.0); Mean Corpuscular Hemoglobin 30.9 pg (27.0-33.0); Monocytes Absolute Auto 0.4 X10*3/uL (0.1-1.2); Monocytes Percent Auto 7.4 % (2-11); Neutrophils Absolute Auto 2.9 x10*3/uL (2.0-8.3); Neutrophils Percent Auto 50.1 % (45-73); Platelet Count 255 X10*3/uL (160-400); Red Cell Distribution Width 13.2 % (11.0-16.0); White Blood Count 5.7 X10*3/uL (4.8-10.8)
[2023-12-30 14:26] LABS: B Type Natriuretic Peptide 29 pg/mL (<100)
[2023-12-30 15:09] LABS: Erythrocyte Sedimentation Rate 77 MM/HR (0-20)
== END 2023-12-30 12:27 | disposition home or self-care (01) ==
LOC: HO.LAB 12:26
PROVIDERS: PCP Internal Medicine; Visit Provider Internal Medicine
DX: I10 Essential (primary) hypertension (principal); E03.9 Hypothyroidism, unspecified; R06.00 Dyspnea, unspecified; Z87.39 Personal history of other diseases of the musculoskeletal system and connective tissue
CPT/HCPCS: 36415; 71046; 83880; 85025; 85379; 85652

== ENCOUNTER 2024-02-25 10:46 | Outpatient (AMB) | payer MEDICARE, BC, SELFPAY ==
--- NOTE | 2024-02-25 10:51 | A.OFFVIS_ITS ---
Vital Signs 02/25/24 10:53 Height 5 ft 4 in Weight 160 lb 11.472 oz BMI 27.6 BP 122/80 Blood Pressure Location Lt brachial Position Sitting Pulse 73 Pulse Source Pulse Oximeter Pulse Oximetry (%) 98 Oxygen Delivery Method Room Air Intake Visit Reasons: ELEV ESR Intake Note: New patient presents today for abnormal lab consult. Reports no pain today but did have arm pain when she was referred. Patient shares she has been experiencing julieta shoulder pains on and off that started a few weeks ago. Patient shares she crochets for fun. Paper Testing Supervisor Required: No Accompanied by: Self / Same As Patient Allergies No Known Allergies Allergy (Verified 02/25/24 10:55) Medication List - Last Reconciled 02/25/24 by Quang Castellano MD atenolol 25 mg PO DAILY levothyroxine 50 mcg PO DAILY rosuvastatin 5 mg PO DAILY HPI Comments Details: This is a 74-year-old female presents for evaluation of elevated sed rate. Patient is a poor historian and states that she has significant memory difficulties. She states that over the last 1-2 years she was diagnosed by her PCP with PMR. She states that she has been having fatigue and memory problems. She gets intermittent bilateral arm and shoulder pain. States that sometimes she gets morning stiffness of her body lasting about an hour. She has some mornings with arm pain. She denies any other pains. Denies any skin rashes. She states that she had rare headaches usually occurring at the top of the head not associated with visual changes. She states that she was prescribed prednisone. She does not recall when but it was over the last year. She does not recall the dose or the duration. She does not recall the date of her last prednisone dose. She can not tell whether it helped her or not but believes it caused hair loss. She is unaware of any family history of an autoimmune rheumatic disease. She denies any history of DVT/PE. States that she was recently referred to a turbo generator oiler and the stress test was done she does not know the results. [facility] Medical History Hypothyroid Arrhythmia Surgical History Hx of tonsillectomy Social History Alcohol intake: current Alcohol intake frequency: holidays/special occasions only Current occupational status: retired Female Reproductive History Menstrual Total pregnancies: 3 Full term: 3 Review of Systems Const Reports fatigue, Denies fever(s), Reports weakness and Denies weight loss Musc Reports arthralgias, Denies joint swelling and Reports stiffness Skin/Breast Reports alopecia Neuro Reports weakness Endo Reports fatigue Physical Exam Vital Signs: Last Vital Signs Pulse 73 02/25/24 10:53 BP 122/80 02/25/24 10:53 Pulse Ox 98 02/25/24 10:53 Oxygen Delivery Method Room Air 02/25/24 10:53 BMI result Body Mass Index 27.6 Const General: cooperative, healthy appearing and comfortable Nutritional Appearance: overweight Orientation/consciousness: patient oriented x3 Limitations: no limitations HEENT Head: Yes normocephalic and Yes atraumatic Mouth: moist mucous membranes Resp Effort & Inspection: normal respiratory effort and able to speak in complete sentences Auscultation: clear to auscultation bilaterally Cardio Rate: regular rate Rhythm: regular rhythm Neuro General: patient oriented x3 Extrem Other: No active synovitis both hands wrists Range of motion of shoulders Negative empty can test, infraspinatus test, lift-off test bilaterally Negative Speed's test bilaterally Proximal muscle strength 5/5 all 4 extremities No hip pain with manipulation bilaterally Negative straight leg raise test bilaterally normal nailfold capillaroscopy Assessment & Plan Assessment & Plan (1) Elevated erythrocyte sedimentation rate: Code(s): R70.0 - Elevated erythrocyte sedimentation rate Category: Medical Plan: This is a 74-year-old female who presents for evaluation of significantly elevated ESR. Unfortunately patient has poor memory and is a poor historian. There is some suggestion of bilateral shoulder and arm pain. Some suggestion of morning stiffness. She believes she had a positive response to prednisone prescribed by her PCP but she does not recall the date, the dose or the duration. Will order comprehensive serology to screen for underlying autoimmune rheumatic disease. Check bilateral shoulder x-rays follow-up in about 6 weeks Orders: Orders Comprehensive Met. Panel Today M32.9 - Systemic lupus erythematosus, unspecified C Reactive Protein Today M32.9 - Systemic lupus erythematosus, unspecified Erythrocyte Sedimentation Rate Today M32.9 - Systemic lupus erythematosus, unspecified Hepatitis A,B,C Profile Today Z11.59 - Encounter for screening for other viral diseases Protein Electrophoresis, Serum Today M32.9 - Systemic lupus erythematosus, unspecified T Spot TB Today Z11.7 - Encounter for testing for latent tuberculosis infection Lyme IgG/IgM w/reflex to WB Today M25.50 - Pain in unspecified joint Anti Extractable Nuclear Ag Today M32.9 - Systemic lupus erythematosus, unspecified Anti DNA DS Antibody Today M32.9 - Systemic lupus erythematosus, unspecified Creatine Kinase Total Today M32.9 - Systemic lupus erythematosus, unspecified XR shoulder LT min 2V Today M25.50 - Pain in unspecified joint XR shoulder RT min 2V Today M25.50 - Pain in unspecified joint Complete Blood Count Auto Diff Today M32.9 - Systemic lupus erythematosus, unspecified Immunofixation Pnl, Serum Today M32.9 - Systemic lupus erythematosus, unspecified ANCA Vasculitides Today I77.6 - Arteritis, unspecified Angiotensin Converting Enzyme Today D86.9 - Sarcoidosis, unspecified Rheumatoid Factor Today M25.50 - Pain in unspecified joint Cyclic Citrullinated Peptide Today M25.50 - Pain in unspecified joint STACY Reflex Titer and Pattern Today M32.9 - Systemic lupus erythematosus, unspecified Complement C3 Today M32.9 - Systemic lupus erythematosus, unspecified Complement C4 Today M32.9 - Systemic lupus erythematosus, unspecified DNA Double Stranded-Crithidia Today M32.9 - Systemic lupus erythematosus, unspecified Protein Creatinine Ratio, Ur Today M32.9 - Systemic lupus erythematosus, unspecified Sjogren's Antibodies Today M32.9 - Systemic lupus erythematosus, unspecified UA w Microscopic Today M32.9 - Systemic lupus erythematosus, unspecified Coding Level of Care Code New Pt Level 4 (16724) Diagnoses Elevated erythrocyte sedimentation rate R70.0
[2024-02-25 10:53] VITALS: BP 122/80; PULSE 73; O2SAT 98; BMI 27.6
== END 2024-02-25 11:28 | disposition home or self-care (01) ==
PROVIDERS: PCP Internal Medicine; Visit Provider Student in an Organized Health Care Education/Training Program
DX: R70.0 Elevated erythrocyte sedimentation rate (principal)
CPT/HCPCS: 99204

== ENCOUNTER → 2024-02-25 10:46 | Outpatient (BNVA) | payer MEDICARE, BC, SELFPAY | PROVIDERS: PCP Internal Medicine; Visit Provider Student in an Organized Health Care Education/Training Program | DX: R70.0 Elevated erythrocyte sedimentation rate (principal) | CPT/HCPCS: 99202 ==

== ENCOUNTER 2024-03-22 11:25 | Outpatient (REF) | payer MEDICARE, BC, SELFPAY ==
[2024-03-22 14:01] LABS: C Reactive Protein < 0.10 mg/dL (< or = 0.50)
[2024-03-22 14:12] LABS: Erythrocyte Sedimentation Rate 52 MM/HR (0-20)
== END 2024-03-22 11:26 | disposition home or self-care (01) ==
LOC: HO.10HDL 11:25
PROVIDERS: Visit Provider Internal Medicine
DX: M79.643 Pain in unspecified hand (principal)
CPT/HCPCS: 36415; 82550; 85652; 86140

== ENCOUNTER 2024-04-06 10:50 | Outpatient (REF) | payer MEDICARE, BC, SELFPAY ==
--- NOTE | ~2024-04-06 | XR_ITS ---
EXAMINATION: XR SHOULDER, RIGHT XR SHOULDER, LEFT CLINICAL INFORMATION: Bilateral shoulder pain. COMPARISON: None available. TECHNIQUE: AP, Grashey, scapular Y, and axillary views of the right and left shoulder. FINDINGS: RIGHT SHOULDER: No acute fracture or dislocation. Small acromioclavicular and glenohumeral marginal osteophytes. No osseous erosion. Tiny soft tissue calcification adjacent to the posterior aspect of the greater tuberosity measuring up to 0.3 cm, consistent with minimal distal infraspinatus calcific tendinitis. LEFT SHOULDER: No acute fracture or dislocation. Small acromioclavicular and glenohumeral marginal osteophytes. No osseous erosion. No abnormal soft tissue calcification. XR/XR shoulder RT min 2V IMPRESSION: RIGHT SHOULDER: Mild acromioclavicular and glenohumeral osteoarthritis. Minimal distal infraspinatus calcific tendinitis. LEFT SHOULDER: Mild acromioclavicular and glenohumeral osteoarthritis.
--- NOTE | ~2024-04-06 | XR_ITS ---
EXAMINATION: XR SHOULDER, RIGHT XR SHOULDER, LEFT CLINICAL INFORMATION: Bilateral shoulder pain. COMPARISON: None available. TECHNIQUE: AP, Grashey, scapular Y, and axillary views of the right and left shoulder. FINDINGS: RIGHT SHOULDER: No acute fracture or dislocation. Small acromioclavicular and glenohumeral marginal osteophytes. No osseous erosion. Tiny soft tissue calcification adjacent to the posterior aspect of the greater tuberosity measuring up to 0.3 cm, consistent with minimal distal infraspinatus calcific tendinitis. LEFT SHOULDER: No acute fracture or dislocation. Small acromioclavicular and glenohumeral marginal osteophytes. No osseous erosion. No abnormal soft tissue calcification. XR/XR shoulder LT min 2V IMPRESSION: RIGHT SHOULDER: Mild acromioclavicular and glenohumeral osteoarthritis. Minimal distal infraspinatus calcific tendinitis. LEFT SHOULDER: Mild acromioclavicular and glenohumeral osteoarthritis.
[2024-04-06 11:52] LABS: MANUAL DIFF FLAG NO
[2024-04-06 12:18] LABS: Basophils Percent Auto 0.6 % (0-2); Eosinophils Absolute Auto 0.2 X10*3/uL (0.0-0.4); Eosinophils Percent Auto 4.1 % (0-4); Hematocrit 42.4 % (37.0-47.0); Hemoglobin 14.2 g/dl (12.0-16.0); Imm Gran Abs Auto 0.02 X10*3/uL (0.00-0.03); Imm Gran Pct Auto 0.4 % (0.0-0.4); Lymphocytes Absolute Auto 1.7 X10*3/uL (1.2-4.9); Lymphocytes Percent Auto 35.8 % (20-40); Mean Corpuscular HGB Conc 33.5 g/dl (31.0-35.0); Mean Corpuscular Hemoglobin 31.6 pg (27.0-33.0); Mean Corpuscular Volume 94.2 fL (80.0-98.0); Mean Platelet Volume 9.7 fL (9.4-12.3); Monocytes Absolute Auto 0.4 X10*3/uL (0.1-1.2); Neutrophils Absolute Auto 2.3 x10*3/uL (2.0-8.3); Neutrophils Percent Auto 50.1 % (45-73); Platelet Count 227 X10*3/uL (160-400); Red Cell Distribution Width 14.1 % (11.0-16.0); White Blood Count 4.7 X10*3/uL (4.8-10.8)
[2024-04-06 12:29] LABS: Appearance Urine Clear; Color Urine Yellow; Glucose Urine UA Negative (Negative); Leukocyte Esterase Urine Trace (Negative); Nitrite Urine Negative (Negative); UMIC TRIGGER UA YES; Urine Blood Negative (Negative); Urine Ketones Trace mg/dL (Negative); Urine Protein Negative (Neg-Trace)
[2024-04-06 12:35] LABS: Bacteria Urine None Seen (None Seen); Hyaline Casts Urine 0-2 /LPF (0-2); RBC Urine 0-2 /HPF (0-2); Squamous Epithelial Cell Urine 0-2 /HPF (0-2); WBC Urine 0-5 /HPF (0-5)
[2024-04-06 12:35] LABS: Rheumatoid Factor < 13.0 IU/mL (<15.0)
[2024-04-06 12:37] LABS: Alanine Aminotransferase 11 U/L (0-31); Alkaline Phosphatase 47 U/L (39-117); Anion Gap 11 (12-20); Aspartate Amino Transferase 14 U/L (5-31); Bilirubin Total 0.5 mg/dL (0.0-1.0); Blood Urea Nitrogen 9 mg/dL (9-16); C Reactive Protein < 0.10 mg/dL (< or = 0.50); Calcium 9.7 mg/dL (8.4-10.2); Carbon Dioxide 24 mmol/L (22-29); Chloride 109 mmol/L (96-108); Estimated Glomerular Filt Rate > 60; Glucose Random 130 mg/dL (60-115); Potassium 3.7 mmol/L (3.3-5.1); Sodium 140 mmol/L (135-145); Total Protein 7.3 g/dL (6.5-8.0)
[2024-04-06 12:52] LABS: Erythrocyte Sedimentation Rate 40 MM/HR (0-20)
[2024-04-06 13:02] LABS: Creatinine Urine 167.43 mg/dL; Protein/Creatinine Ratio, Ur 0.06 (<0.2); Total Protein Urine Random 10 mg/dL (<12)
[2024-04-06 13:50] LABS: HBS Num1 2.98 mIU/mL (0-7.99); HBc Num1 0.15 S/CO (0.00-0.79); HBsAGNum1 0.31 S/CO (0.00-0.99); Hepatitis A Antibody IgM 0.14 Index (0-0.79); Hepatitis B Core Antibody Nonreactive (Nonreactive); Hepatitis B Surface Antigen Negative (Negative); ~HepC Num1 0.09 S/CO (0.00-0.79); ~Hepatitis A Antibody IgM Nonreactive (Nonreactive); ~Hepatitis B Surface Antibody NONREACTIVE (Nonreactive); ~Hepatitis C Antibody Nonreactive (Nonreactive)
[2024-04-08 10:08] LABS: PES - Abn Protein Band 1 1.2 g/dL (NONE DETECTED); Prot Elec - Albumin 4.2 g/dL (3.8-4.8); Prot Elec - Alpha1 0.3 g/dL (0.2-0.3); Prot Elec - Alpha2 0.7 g/dL (0.5-0.9); Prot Elec - Beta 1 0.4 g/dL (0.4-0.6); Prot Elec - Beta 2 0.3 g/dL (0.2-0.5); Prot Elec - Gamma 1.6 g/dL (0.8-1.7); Prot Elec - Total Protein 7.3 g/dL (6.1-8.1)
[2024-04-08 13:28] LABS: Lyme Abs Screen <0.90 index
[2024-04-08 22:19] LABS: TS Negative Control Passed; TS Panel A 2; TS Panel B 0; TS Positive Control Passed; TSpotTB Negative (Negative)
[2024-04-08 22:48] LABS: Anti DNA DS Antibody <1 IU/mL; Antibody to SS-A Antigen <1.0 NEG AI (<1.0 NEG); Antibody to SS-B Antigen <1.0 NEG AI (<1.0 NEG); Myeloperoxidase Antibody <1.0 AI; Proteinase 3 PR3 Antibodies <1.0 AI; SM/Ribonucleoprotein Ab <1.0 NEG AI (<1.0 NEG); Smith Protein <1.0 NEG AI (<1.0 NEG)
[2024-04-09 00:54] LABS: Complement C3 127 mg/dL (83-193)
[2024-04-09 20:18] LABS: Angiotensin Converting Enzyme 41 U/L (9-67)
[2024-04-11 15:12] LABS: Anti Nuclear Antibody Screen NEGATIVE (NEGATIVE)
[2024-04-11 23:23] LABS: IgA 107 mg/dL (70-320); IgG 2164 mg/dL (600-1540); IgM 20 mg/dL (50-300)
[2024-04-12 12:38] LABS: Cyclic Citrullinated Peptide <16 UNITS
[2024-04-14 15:54] LABS: DNAds, Crithidia Antibody Negative (Negative)
== END 2024-04-06 10:51 | disposition home or self-care (01) ==
LOC: HO.LAB 10:50
PROVIDERS: PCP Internal Medicine; Visit Provider Student in an Organized Health Care Education/Training Program
DX: Z11.59 Encounter for screening for other viral diseases (principal); Z11.7 Encounter for testing for latent tuberculosis infection; M32.9 Systemic lupus erythematosus, unspecified; M25.50 Pain in unspecified joint; D86.9 Sarcoidosis, unspecified; I77.6 Arteritis, unspecified; Z72.89 Other problems related to lifestyle
CPT/HCPCS: 36415; 73030; 80053; 81001; 82164; 82550; 82570; 82784; 84156; 84165; 85025; 85652; 86021; 86038; 86140; 86160; 86200; 86225; 86235; 86255; 86334; 86431; 86481; 86617; 86618; 86704; 86706; 86709; 86803; 87340

== ENCOUNTER 2024-04-18 11:20 | Outpatient (AMB) | payer MEDICARE, BC, SELFPAY ==
--- NOTE | 2024-04-18 11:26 | MHC.OFFVIS ---
Vital Signs 04/18/24 11:29 Height 5 ft 4 in Weight 159 lb 6.307 oz BMI 27.4 BP 124/80 Blood Pressure Location Rt brachial Position Sitting Pulse 73 Pulse Source Pulse Oximeter Pulse Oximetry (%) 98 Oxygen Delivery Method Room Air Intake Visit Reasons: ESR elevated/lm Intake Note: Patient presents for ESR elevated. Allergies No Known Allergies Allergy (Verified 04/18/24 11:32) Medication List - Last Reconciled 04/18/24 by Quang Castellano MD atenolol 25 mg PO DAILY coenzyme Q10 10 mg PO TID levothyroxine 50 mcg PO DAILY rosuvastatin 5 mg PO DAILY HPI Comments Details: Patient returns for follow-up after completion of her diagnostic workup. Continues to feel about the same. She denies any morning stiffness. Swollen joints, skin rashes, fevers or weight loss Initial history: This is a 74-year-old female presents for evaluation of elevated sed rate. Patient is a poor historian and states that she has significant memory difficulties. She states that over the last 1-2 years she was diagnosed by her PCP with PMR. She states that she has been having fatigue and memory problems. She gets intermittent bilateral arm and shoulder pain. States that sometimes she gets morning stiffness of her body lasting about an hour. She has some mornings with arm pain. She denies any other pains. Denies any skin rashes. She states that she had rare headaches usually occurring at the top of the head not associated with visual changes. She states that she was prescribed prednisone. She does not recall when but it was over the last year. She does not recall the dose or the duration. She does not recall the date of her last prednisone dose. She can not tell whether it helped her or not but believes it caused hair loss. She is unaware of any family history of an autoimmune rheumatic disease. She denies any history of DVT/PE. States that she was recently referred to a magento developer and the stress test was done she does not know the results. [facility] Medical History Hypothyroid Arrhythmia Surgical History Hx of tonsillectomy Social History Alcohol intake: current Alcohol intake frequency: holidays/special occasions only Current occupational status: retired Female Reproductive History Menstrual Total pregnancies: 3 Full term: 3 Review of Systems Const Reports fatigue, Denies fever(s), Reports weakness and Denies weight loss Musc Denies joint swelling Skin/Breast Reports alopecia Neuro Reports weakness Endo Reports fatigue Physical Exam Vital Signs: Last Vital Signs Pulse 73 04/18/24 11:29 BP 124/80 04/18/24 11:29 Pulse Ox 98 04/18/24 11:29 Oxygen Delivery Method Room Air 04/18/24 11:29 BMI result Body Mass Index 27.4 Const General: cooperative, healthy appearing and comfortable Nutritional Appearance: overweight Orientation/consciousness: patient oriented x3 Limitations: no limitations HEENT Head: Yes normocephalic and Yes atraumatic Mouth: moist mucous membranes Resp Effort & Inspection: normal respiratory effort and able to speak in complete sentences Cardio Rate: regular rate Rhythm: regular rhythm Neuro General: patient oriented x3 Extrem Other: No active synovitis both hands wrists Normal Range of motion of shoulders Negative empty can test, infraspinatus test, lift-off test bilaterally Negative Speed's test bilaterally Proximal muscle strength 5/5 all 4 extremities No hip pain with manipulation bilaterally Negative straight leg raise test bilaterally normal nailfold capillaroscopy Assessment & Plan Assessment & Plan (1) Elevated erythrocyte sedimentation rate: Code(s): R70.0 - Elevated erythrocyte sedimentation rate Category: Medical Plan: This is a 74-year-old female who presents for evaluation of significantly elevated ESR. Unfortunately patient has poor memory and is a poor historian. She believes that she was diagnosed with PMR by her PCP and was on treatment. Upon evaluation I do not see any signs highly suspicious for an autoimmune rheumatic disease. Comprehensive serology is negative. Her ESR remains elevated but her CRP is undetectable. Her labs however showed MGUS. I referred patient to heme/Onc. Follow-up with me as needed Plan I spent 15 minutes reviewing patient's chart, evaluating patient, counseling patient and documenting in the chart Orders: Referrals Hematology & Oncology Referral D47.2 - Monoclonal gammopathy Coding Level of Care Code Est Pt Level 3 (56865) Diagnoses Elevated erythrocyte sedimentation rate R70.0
[2024-04-18 11:29] VITALS: BP 124/80; PULSE 73; O2SAT 98; BMI 27.4
== END 2024-04-18 11:56 | disposition home or self-care (01) ==
PROVIDERS: PCP Internal Medicine; Visit Provider Student in an Organized Health Care Education/Training Program
DX: R70.0 Elevated erythrocyte sedimentation rate (principal)
CPT/HCPCS: 99213

== ENCOUNTER → 2024-04-18 11:20 | Outpatient (BNVA) | payer MEDICARE, BC, SELFPAY | PROVIDERS: PCP Internal Medicine; Visit Provider Student in an Organized Health Care Education/Training Program | DX: R70.0 Elevated erythrocyte sedimentation rate (principal) | CPT/HCPCS: 99212 ==

== ENCOUNTER 2024-04-27 13:51 | Outpatient (REF) | payer MEDICARE, BC, SELFPAY ==
[2024-04-27 16:28] LABS: Anion Gap 13 (12-20); Blood Urea Nitrogen 10 mg/dL (9-16); Calcium 10.1 mg/dL (8.4-10.2); Carbon Dioxide 27 mmol/L (22-29); Chloride 105 mmol/L (96-108); Estimated Glomerular Filt Rate > 60; Glucose Random 88 mg/dL (60-115); Potassium 4.1 mmol/L (3.3-5.1); Sodium 141 mmol/L (135-145)
[2024-04-27 16:46] LABS: T4 Thyroxine 8.4 ug/dL (4.5-12.0); Thyroid Stimulating Hormone 2.74 uIU/mL (0.32-4.0)
[2024-04-27 16:55] LABS: Vitamin B12 237 pg/mL (200-900)
== END 2024-04-27 13:52 | disposition home or self-care (01) ==
LOC: HO.LAB 13:51
PROVIDERS: PCP Internal Medicine; Visit Provider Psychiatry & Neurology Neurology
DX: G31.84 Mild cognitive impairment of uncertain or unknown etiology (principal)
CPT/HCPCS: 36415; 80048; 82607; 82746; 84436; 84443

== ENCOUNTER → 2024-05-18 13:20 | Outpatient (BNV) | payer MEDICARE, BC, SELFPAY | PROVIDERS: PCP Internal Medicine; Referring Provider Student in an Organized Health Care Education/Training Program; Visit Provider Internal Medicine | DX: D47.2 Monoclonal gammopathy (principal) | CPT/HCPCS: 99204; G2211 ==

== ENCOUNTER 2024-07-14 11:38 | Outpatient (REF) | payer MEDICARE, BC, SELFPAY ==
[2024-07-14 13:04] LABS: Vitamin B12 237 pg/mL (200-900)
== END 2024-07-14 11:39 | disposition home or self-care (01) ==
LOC: HO.LAB 11:38
PROVIDERS: PCP Internal Medicine; Visit Provider Psychiatry & Neurology Neurology
DX: G31.84 Mild cognitive impairment of uncertain or unknown etiology (principal)
CPT/HCPCS: 36415; 82607

== ENCOUNTER 2024-08-08 13:56 | Outpatient (REF) | payer MEDICARE, BC, SELFPAY ==
[2024-08-08 14:09] LABS: MANUAL DIFF FLAG NO
[2024-08-08 15:23] LABS: Basophils Percent Auto 0.6 % (0-2); Eosinophils Absolute Auto 0.2 X10*3/uL (0.0-0.4); Eosinophils Percent Auto 2.3 % (0-4); Hematocrit 42.2 % (37.0-47.0); Hemoglobin 13.8 g/dl (12.0-16.0); Imm Gran Abs Auto 0.02 X10*3/uL (0.00-0.03); Imm Gran Pct Auto 0.3 % (0.0-0.4); Lymphocytes Absolute Auto 1.8 X10*3/uL (1.2-4.9); Lymphocytes Percent Auto 26.3 % (20-40); Mean Corpuscular HGB Conc 32.7 g/dl (31.0-35.0); Mean Corpuscular Hemoglobin 31.4 pg (27.0-33.0); Mean Corpuscular Volume 95.9 fL (80.0-98.0); Mean Platelet Volume 10.1 fL (9.4-12.3); Monocytes Absolute Auto 0.5 X10*3/uL (0.1-1.2); Monocytes Percent Auto 6.8 % (2-11); Neutrophils Absolute Auto 4.4 x10*3/uL (2.0-8.3); Neutrophils Percent Auto 63.7 % (45-73); Platelet Count 271 X10*3/uL (160-400); Red Cell Distribution Width 13.3 % (11.0-16.0); White Blood Count 6.9 X10*3/uL (4.8-10.8)
[2024-08-08 16:38] LABS: Alanine Aminotransferase 14 U/L (0-31); Albumin Level 4.1 g/dL (3.5-5.0); Anion Gap 14 (12-20); Aspartate Amino Transferase 18 U/L (5-31); Bilirubin Total 0.4 mg/dL (0.0-1.0); Blood Urea Nitrogen 10 mg/dL (9-16); Calcium 9.7 mg/dL (8.4-10.2); Carbon Dioxide 25 mmol/L (22-29); Chloride 107 mmol/L (96-108); Estimated Glomerular Filt Rate > 60; Free T4 (Free Thyroxine) 1.17 ng/dL (0.71-1.85); Glucose Random 94 mg/dL (60-115); Potassium 3.8 mmol/L (3.3-5.1); Sodium 142 mmol/L (135-145); Thyroid Stimulating Hormone 2.49 uIU/mL (0.32-4.0); Total Protein 7.9 g/dL (6.5-8.0)
[2024-08-08 17:35] LABS: Alkaline Phosphatase 54 U/L (39-117)
== END 2024-08-08 13:57 | disposition home or self-care (01) ==
LOC: HO.LAB 13:56
PROVIDERS: PCP Internal Medicine; Visit Provider Internal Medicine
DX: I10 Essential (primary) hypertension (principal); E03.9 Hypothyroidism, unspecified
CPT/HCPCS: 36415; 80053; 84439; 84443; 85025

== ENCOUNTER 2024-11-23 12:29 | Outpatient (REF) | payer MEDICARE, BC, SELFPAY ==
--- OUTSIDE RECORDS SUMMARY | 2024-11-23 12:49 | XMS_ITS | Clinical Summary ---
Author Organization [facility] Address [address] [place] [address] Phone Care Team Providers Care Deputy Manager Name Role Phone Physician, No Pcp Primary Care Provider Unavaila ble Social History Tobacco Use Types Packs/Day Years Used Date Smoking Tobacco: Never Assessed Comments Unknown Sex and Gender Information Value Date Recorded Sex Assigned at Female 09/23/2024 2:19 PM EST Legal Sex Female 11:39 AM EDT Gender Identity Female 09/23/2024 2:19 PM EST Sexual Orientation Straight 09/23/2024 2: 19 PM EST Plan of Treatment Health Maintenance Due Date Last Done Comments DTaP,Tdap,and Td Vaccines (1 - Tdap) 01/13/1968 Pneumococcal Vaccine: 50+ Ye ars (1 of 1 - PCV) 1999 Zoster Vaccines (1 of 2) 1999 RSV Immunization Patients 60 + Years Old (1 - 1-dose 75+ series) 01/13/2024 COVID-19 Vaccine ( - 2023-2 5 season) 2024 Influenza Vaccine (#1) 2024 Colorectal Cancer Screening: Colonoscopy 07/19/2024 Depression Screening 07/19/2024 Falls Risk Assessment 07/19/2024 Hepatitis C Screening 07/19/2024 Medicare Annual Wellness Visit 07/19/2024 Osteoporosis Screening (Bone Density Screening) 07/19/2024 Social Influencers of Health Screening 07/19/2024 HIB Vaccines Aged Out No longer eligi ble based on patient's age to complete this topic HPV Vaccines Aged Out No longer eligi ble based on patient's age to complete this topic Hepatitis A Vaccines Aged Out No long er eligible based on patient's age to complete this topic Hepatitis B Vaccines Aged Out No long er eligible based on patient's age to complete this topic IPV Vaccines Aged Out No longer eligi ble based on patient's age to complete this topic MMR Vaccines Aged Out No longer eligi ble based on patient's age to complete this topic Meningococcal ACWY Vaccine Aged Out N o longer eligible based on patient's age to complete this topic Meningococcal B Vacine Aged Out No lo nger eligible based on patient's age to complete this topic RSV Immunization Patients Un farideh 20 months Aged Out No longer eligible b ased on patient's age to complete this topic Varicella Vaccines Aged Out No longer eligible based on patient's age to complete this topic Insurance MEDICARE Care Teams Deputy Manager Relationship Specialty Start Date End Date Physician, No Pcp PCP - General 09/23/24
--- OUTSIDE RECORDS SUMMARY | 2024-11-23 12:49 | XMS_ITS | Continuity of Care Document ---
Author Organization [facility] Address [address] [place] [address]- Care Team Providers Care Medical Donation Professional Name Role Phone Gordon Gonzalez MD Primary Care Physician [phone] [facility]counter [id number] Date(s): 09/27/24 - 10/27/24 [facility] [address] [place], [place] [address] Encounter Type: Triage Allergies, Adverse Reactions, Alerts Substance Criticality Severity Reaction Reaction Severity Status aspirin ulcer Active sulfa drugs Active Advil Active Immunizations Given and Recorded Vaccine Date Status Refusal Reason Influenza Vaccine (oldterm) 1 07/27/08 Given 1Admin Note: [facility] vaccine information given to patient Medications Atenolol = 25 mg, By Mouth, 2 times a day, # 60 Doses, 5 Refills, 01/09/09 4:48:08 PM EDT Start Date: 01/09/09 Stop Date: 07/08/09 Status: Ordered Quantity: 60.0 Unit: Doses Repeat number: 6 Crestor Tablet = 5 mg, By Mouth, Daily, 11 Refills, Maintenance, 10/07/10 10:00:00 AM EST, 30, days, [facility]/pharmacy #[id number] Start Date: 10/07/10 Stop Date: 10/02/11 Status: Ordered Repeat number: 12 Econazole Nitrate 1 applicator, Topically, 2 times a day, 0 Refills, Maintenance, 09/02/12 9:15:51 AM EST Start Date: 09/02/12 Status: Ordered Repeat number: 1 Synthroid By Mouth, Daily, Maintenance, 11/21/14 3:37:52 PM EST Start Date: 11/21/14 Status: Ordered Repeat number: 1 Tylenol Caplet = 650 mg, By Mouth, Every 4 hours, 0 Refills, Maintenance, 09/02/12 9:15:14 AM EST Start Date: 09/02/12 Status: Ordered Repeat number: 1 Social History Social History Type Response Smoking Status Former smoker; Tobac co user in household: No; Other: pt states she quit smoking in 1984; entered on: 10/16/15 Sex Sex Representation Female (finding) Patient Care team information Care Team Personnel Name: Gordon Gonzalez MD Position: [facility] Outreach Member Role: PCP Address: [address] [place] [address] [place] [address] Telecom: Care Team Related Persons Name: CINDI SHELLEY Insurance Providers Guarantor name: [employer] Plan Information #: 1 Payer: [employer] Member Number: NA Policy Number: NA Group Number: [employer] Health Plan Information #: 2 Payer: MEDICARE PART B OUTPT Member Number: SILVIO Policy Number: NA Group Number: NA
--- OUTSIDE RECORDS SUMMARY | 2024-11-23 12:49 | XMS_ITS | Continuity of Care Document ---
Author Organization [facility] ter Address [address] [place] [id number]- Care Team Providers Care Client Coordinator Name Role Phone Gordon Gonzalez MD [id number] Date[facility]s): 10/29/24 - 10/29/[address] [address]- Discharge Disposition: A-D/C Home Attending Physician: Dahiana Li MD Admitting Physician: Dahiana Li MD Referring Physician: Not on Staff, Referring MD Encounter Type: Disch ES Allergies, Adverse Reactions, Alerts Substance Criticality Severity Reaction Reaction Severity Status aspirin ulcer Active sulfa drugs Active Advil Active Immunizations Given and Recorded Vaccine Date Status Refusal Reason Influenza Vaccine (oldterm) 1 07/27/08 Given 1Admin Note: [facility] vaccine information given to patient Medications Atenolol = 25 mg, By Mouth, 2 times a day, # 60 Doses, 5 Refills, 01/09/09 4:48:08 PM EDT Start Date: 01/09/09 Stop Date: 07/08/09 Status: Ordered Quantity: 60.0 Unit: Doses Repeat number: 6 Augmentin 875 mg-125 mg oral tablet 1 tablet, By Mouth, Every 12 hours, for 10 days, # 20 tablet, 0 Refills, Acute 11/08/24 10:54:00 AM EST, 10/29/24 10:54:00 AM EST, Tablet, [facility]/pharmacy #[id number], Partial fill upon patient request if the prescription is for a schedule II opioid drug., 170, cm, 10/29/24 3:35:00 EST, Height, 68, kg, 10/29/24 3:35:00 EST, Dry Weight Start Date: 10/29/24 Stop Date: 11/08/24 Status: Ordered Quantity: 20.0 Unit: tablet Repeat number: 1 Crestor Tablet = 5 mg, By Mouth, Daily, 11 Refills, Maintenance, 10/07/10 10:00:00 AM EST, 30, days, [facility]/pharmacy #[id number] Start Date: 10/07/10 Stop Date: 10/02/11 Status: Ordered Repeat number: 12 Econazole Nitrate 1 applicator, Topically, 2 times a day, 0 Refills, Maintenance, 09/02/12 9:15:51 AM EST Start Date: 09/02/12 Status: Ordered Repeat number: 1 Flexeril 10 mg oral tablet 5 mg, Tablet, By Mouth, Once, STAT, 10/29/24 8:05:00 AM EST, Stop date 10/29/24 8:24:27 AM EST Start Date: 10/29/24 Stop Date: 10/29/24 Status: Completed Repeat number: 1 Synthroid By Mouth, Daily, Maintenance, 11/21/14 3:37:52 PM EST Start Date: 11/21/14 Status: Ordered Repeat number: 1 Tylenol Caplet = 650 mg, By Mouth, Every 4 hours, 0 Refills, Maintenance, 09/02/12 9:15:14 AM EST Start Date: 09/02/12 Status: Ordered Repeat number: 1 Results Radiology Reports * Exam Date Time Procedure Performing Provider Status 10/29/24 8:[address] Abd/Pelvis W/ IV Contrast Only Katy Camejo; Auth (Verified) Notes: (CT Abd/Pelvis W/ IV Contrast Only) Reason For Exam: Pain RESULT: CT Abd/Pelvis W/ IV Contrast Only CT Abd/Pelvis W/ IV Contrast Only INDICATION: Abdominal pain and diarrhea TECHNIQUE: Helical CT scan through the abdomen and pelvis with IV contrast formatted in 3 planes. 75 cc of Isovue 300 was administered intravenously.Weight-based protocol using automatic tube modulation was used to optimize exposure parameters. CTDIvol Body: 13.40 mGy, DLP Body: 665 mGy*cm. COMPARISON: None FINDINGS: DRILLER BRAKE LINING VIEW FINDINGS, LINES AND TUBES: None. LOWER CHEST: Clear lungs. No pleural abnormalities. Normal heart size. No pericardial effusion. DIAPHRAGM: Normal. LIVER: Normal. GALLBLADDER, BILE DUCTS AND NICK HEPATIS: Normal. SPLEEN: Nonspecific 7 mm low-density lesion medial portion is likely no significance. PANCREAS: Normal. ADRENAL GLANDS: Normal. RIGHT KIDNEY AND URETER: 3 mm nonobstructing lower pole stone. No suspicious lesions. LEFT KIDNEY AND URETER: Normal. URINARY BLADDER: Normal. STOMACH, SMALL BOWEL AND LARGE BOWEL: * Moderate inflammation surrounding a thick walled diverticulum of the sigmoid colon along the leftpelvic sidewall on axial image 89. No ectopic gas, phlegmon or abscess. * No obstruction or mass. APPENDIX: Normal. REPRODUCTIVE ORGANS: Normal uterus and ovaries. OMENTUM, PERITONEUM AND MESENTERY: No ascites, pneumoperitoneum or omental lesions LYMPH NODES: Normal. VASCULATURE: Moderate vascular calcification. No aneurysm. No venous thrombosis. ABDOMINAL WALL and RETROPERITONEAL MUSCLES: Normal. BONES: No acute bone findings. IMPRESSION: Uncomplicated acute diverticulitis of the sigmoid colon. WSN: [id number] Ordering Physician: Dahiana Li Dictated By: Vikas Dang MD Dictated Date/Time: 10/29/24 9:52 am Reviewed By: Vikas Dang MD Signed By: Vikas Dang MD Signed Date/Time: 10/29/24 9:52 am Transcribed By: CAMDEN Transcribed Date/Time: 10/29/24 9:44 am Vital Signs Most recent to oldest [Reference Range]: 1 2 3 Height 170 cm (10/29/24 11:31 AM) 170 cm (10/29/24 3:35 AM) 170 cm (10/29/24 3:23 AM) Weight 68 kg (10/29/24 11:31 AM) 68 kg (10/29/24 3:35 AM) 68 kg (10/29/24 3:23 AM) Oxygen Saturation [94-100 %] 100 % (10/29/24 11:31 AM) 97 % (10/29/24 3:23 AM) Pulse Rate [55-90 bpm] 71 bpm (10/29/24 11:31 AM) 93 bpm *H* (10/29/24 3:23 AM) Body Mass Index [18.5-24.99 kg/m2] 23.53 kg/m2 (10/29/24 11:31 AM) 23.53 kg/m2 (10/29/24 3:23 AM) Blood Pressure [90-138/55-84 mm Hg] 121/63mm Hg (10/29/24 11:31 AM) 167/99mm Hg *H* (10/29/24 3:23 AM) Respiratory Rate [16-30 br/min] 18 br/min (10/29/24 11:31 AM) 18 br/min (10/29/24 8:24 AM) 19 br/min (10/29/24 3:23 AM) Temperature [96.8-100.4 DegF] 97.4 DegF (10/29/24 11:31 AM) 98.9 DegF (10/29/24 3:23 AM) Mode of Delivery (Oxygen) Room air (10/29/24 11:31 AM) Room air (10/29/24 3:23 AM) Blood pressure sites Arm, left (10/29/24 11:31 AM) Arm, left (10/29/24 3:23 AM) Temperature Route Oral (10/29/24 11:31 AM) Oral (10/29/24 3:23 AM) Dry Weight 68 kg (10/29/24 11:31 AM) 68 kg (10/29/24 3:35 AM) 68 kg (10/29/24 3:23 AM) Weight Obtained Via Patient/family state d (10/29/24 3:23 AM) Dry Weight Obtained Via Patient/family s tated (10/29/24 3:23 AM) Social History Social History Type Response Smoking Status Former smoker; Tobac co user in household: No; Other: pt states she quit smoking in 1984; entered on: 10/16/15 Sex Sex Representation Female (finding) EKG study * Event Display: ECG 12-Lead Authored Date: Please click on pdf link to open report * Event Display: ECG 12-Lead Authored Date: Ventricular Rate: 67 BPM Atrial Rate: 67 BPM P-R Interval: 154 ms QRS Duration: 70 ms Q-T Interval: 346 ms QTC Calculation(Bazett): 365 ms P Berlin: 65 degrees R Berlin: 44 degrees T Berlin: 52 degrees Sinus rhythm with Premature atrial complexes Nonspecific ST and T wave abnormality Abnormal ECG When compared with ECG of 25-Aug-2013 08:07, Premature atrial complexes are now Present Nonspecific T wave abnormality, worse in Lateral leads QT has shortened Confirmed by LISA CARIAS MD ([id number]) on 10/29/2024 9:34:51 AM Lund: LISA CARIAS MD Note * Dahiana Li MD: PERFORM, SIGN, VERIFY Event Display: Patient Education Handout Authored Date: [id number] * Dahiana Li MD: PERFORM Event Display: Patient Education Leaflets Authored Date: [id number] Diverticulitis ?? [id number] Diverticulitis Some people as they get older get pouches that push into the wall of the colon. These pouches are??called diverticuli. They often cause no symptoms. If the pouches become blocked, they can become inflamed and infected. This is called diverticulitis. It causes pain in your lower belly (abdomen) and fever. It may also cause nausea, vomiting, diarrhea, or constipation. If not treated, it can become a serious health problem. It can cause an abscess to form around the pouch. The abscess may block the intestinal tract. The pouch may even tear or rupture. This can spread infection throughout the belly. You will need emergency medical treatment if that happens. Sometimes, diverticulitis may not need antibiotics. But antibiotics are most often used. When treatment is started early, oral antibiotics alone may be enough to cure diverticulitis. This method is tried first. But if you don't get better or if your condition gets worse while taking antibiotics, you may need to be admitted to the hospital. There, you will get antibiotics and fluids through an IV (intravenous) line. You may also have to rest your bowel. That means you won't eat or drink for a period of time. Severe cases may need surgery. Home care These guidelines will help you care for yourself at home: ??? During the acute illness, rest and follow your healthcare??provider's instructions about diet. Sometimes you will need to be on a clear liquid diet to rest your bowel. Once your symptoms are better, you may be told to eat a low- fiber diet for some time. You can eat foods such as: o Flake cerealo Mashed potatoes o Pancakes and waffles o Pasta o White bread o Rice o Applesauce o Bananas o Eggso Fish o Poultry o Tofu o Cooked soft vegetables ??? Take antibiotics exactly as told. Don't miss any doses or stop taking the medicine, even if you feel better. ??? Keep track of your temperature. Tell your healthcare provider if you have a rising temperature. Preventing future attacks Once you have an episode of diverticulitis, you are at risk of having it again. But you may be ableto lower your risk by eating a high-fiber diet (20 g/day to 35 g/day of fiber). This cleans out thecolon pouches that already exist. It may also prevent new ones from forming. Foods high in fiber include: ??? Fresh fruits and edible peelings ??? Raw or lightly cooked vegetables ??? Whole-grain cereals and breads ??? Dried beans and peas ??? Bran Here are other steps you can take to help prevent future attacks: ??? Take your medicines, such as antibiotics, as??your healthcare provider says. ??? Drink 6 to 8 glasses of water every day, unless told otherwise. ??? Use a heating pad or hot water bottle to help with belly cramping or pain. ??? Start an exercise program. Ask your healthcare provider how to get started. You can benefit from simple activities, such as walking or gardening. ??? Treat diarrhea with a bland diet. Start with liquids only. Then slowly add fiber over time. ??? Watch for changes in your bowel movements (constipationto diarrhea). Prevent constipation by eating a high-fiber diet, plenty of fluids, and taking a stool softener if needed. ??? Get plenty of rest and sleep. ??? Don't take NSAIDs (anti- inflammatory drugs) unless your healthcare provider tells you to. They can increase your risk for diverticulitis. ?? Follow-up care Check in with your healthcare provider as advised or sooner if you are not getting better in the next 2??days. Your provider may advise a colonoscopy to look at the colon once it has healed. ?? When to call your healthcare provider Call your healthcare provider right away if any of these occur: ??? Fever of 100.4??F (38??C) or higher, or as directed by your healthcare provider ??? Repeated vomiting or swelling of the belly ??? Weakness, dizziness, light- headedness ??? Pain in your belly that gets worse, is severe, or spreads to your back ??? Pain that moves to the right lower belly ??? Rectal bleeding. This means stools that are red, black, or maroon in color. ??? Unexpected vaginal bleeding or pus discharge ?? Last Reviewed Date: 2024 ?? [id number] [employer]. All rights reserved. This information is not intended as a substitute for professional medical care. Always follow your healthcare professional's instructions. ?? Patient Care team information Care Team Personnel Name: Gordon Gonzalez MD Position: [facility] Outreach Member Role: PCP Address: [address] [place] [address] Gordon Gonzalez MD [place], [place] [address] Telecom: Care Team Related Persons Name: CINDI SHELLEY Insurance Providers Guarantor name: SILVIO Health Plan Information #: 2 Payer: [employer] SUPPL Member Number: [id number] Policy Number: SILVIO Group Number: [id number] Health Plan Information #: 1 Payer: SELF PAY INSURANCE Member Number: [id number] Policy Number: SILVIO Group Number: [id number]
[2024-11-23 13:59] LABS: Estimated Average Glucose 117 mg/dL; Hemoglobin A1C 144.3486 umol/L; Hemoglobin A1c % 5.7 % (<6.0); Total Hemoglobin (HGBA1C) 3742.4761 umol/L
[2024-11-23 14:19] LABS: Cholesterol 156 mg/dL (<200); HDL Cholesterol 49 mg/dL (>40); LDL Cholesterol Calculated 91 mg/dL (<100); Triglycerides 82 mg/dL (<150)
[2024-11-23 14:48] LABS: Vitamin B12 210 pg/mL (200-900)
[2024-11-24 17:23] LABS: Homocysteine 13.2 umol/L (<10.4)
[2024-11-26 06:12] LABS: Methylmalonic Acid 229 nmol/L (69-390)
== END 2024-11-23 12:30 | disposition home or self-care (01) ==
LOC: HO.LAB 12:29
PROVIDERS: PCP Internal Medicine; Visit Provider Internal Medicine
DX: R41.3 Other amnesia (principal); Z13.1 Encounter for screening for diabetes mellitus; Z13.6 Encounter for screening for cardiovascular disorders
CPT/HCPCS: 36415; 80061; 82607; 83036; 83090; 83921

== ENCOUNTER 2024-11-30 14:22 | Outpatient (REF) | payer MEDICARE, BC, SELFPAY ==
--- NOTE | ~2024-11-30 | XR_ITS ---
CLINICAL HISTORY: MGUS, MM screen Exam: Whole-body skeletal survey. Comparison: None. Findings: Whole-body skeletal survey was performed. A total of 19 radiographs were obtained. No lytic lesions identified. No acute fracture. Multilevel degenerative disc disease and degenerative facet disease is seen throughout the cervical, thoracic, and lumbar spine. There is moderate convex left upper lumbar curvature. There is 7 mm of anterolisthesis of L4 on L5. Bones are osteopenic. Multifocal degenerative change throughout the extremities. Impression: No lytic lesions identified. This document has been electronically signed by: Montez Lewis MD on 12/01/2024 10:44:23
--- OUTSIDE RECORDS SUMMARY | 2024-11-30 17:53 | XMS_ITS | Clinical Summary ---
Author Organization [facility] Address [address] [place] [address] Phone Care Team Providers Care Registered Dietician Name Role Phone Physician, No Pcp Primary [...] complete this topic Insurance MEDICARE Care Teams Registered Dietician Relationship Specialty Start Date End Date Physician, No Pcp PCP - General 09/23/24
== END 2024-11-30 14:23 | disposition home or self-care (01) ==
LOC: HO.XRAY 14:22
PROVIDERS: PCP Internal Medicine; Visit Provider Nurse Practitioner Family
DX: D47.2 Monoclonal gammopathy (principal)
CPT/HCPCS: 77075

== ENCOUNTER → 2024-11-30 14:33 | Outpatient (BNV) | payer MEDICARE, BC, SELFPAY | PROVIDERS: PCP Internal Medicine; Visit Provider Radiology Diagnostic Radiology | DX: D47.2 Monoclonal gammopathy (principal) | CPT/HCPCS: 77075 ==

== ENCOUNTER 2024-12-02 08:12 | Outpatient (REF) | payer MEDICARE, BC, SELFPAY ==
--- OUTSIDE RECORDS SUMMARY | 2024-12-02 08:23 | XMS_ITS | Clinical Summary ---
Author Organization [facility] Address [address] [place] [address] Phone Care Team Providers Care Environmental Compliance Specialist Name Role Phone Physician, No Pcp Primary [...] complete this topic Insurance MEDICARE Care Teams Environmental Compliance Specialist Relationship Specialty Start Date End Date Physician, No Pcp PCP - General 09/23/24
== END 2024-12-02 08:13 | disposition home or self-care (01) ==
LOC: HO.LNP 08:12
PROVIDERS: Visit Provider Nurse Practitioner Family
DX: D47.2 Monoclonal gammopathy (principal)
CPT/HCPCS: 86335

== ENCOUNTER 2025-06-12 10:15 | Outpatient (AMB) | payer MEDICARE, BC, SELFPAY ==
--- NOTE | 2025-06-12 10:18 | MHC.PC.OV ---
Vital Signs 06/12/25 10:25 Height 5 ft 7 in Weight 67.132 kg BMI 23.2 BP 120/80 Pulse 67 Pulse Source Pulse Oximeter Temp 97.4 F Temp Source Temporal Artery Scan Pulse Oximetry (%) 97 Oxygen Delivery Method Room Air Intake Visit Reasons: 6 month f/u-croke pt Airdrop Systems Technician Required: No Accompanied by: Son Allergies No Known Allergies Allergy (Verified 06/12/25 10:19) Tobacco use date assessed: 06/12/25 Fall risk assessment: No Falls in past year Last assessed Fall Risk: 06/12/25 Dental Screening Dental Screen Date: 06/12/25 Did you have a dental visit in the last 12 months?: No Did you have a dental problem in the last 6 months where you did not have access to dental care?: No Was dental information given to patient?: No HPI HPI Comments History of Present Illness Details 75-year-old female with history of hyperlipidemia, hypertension, MGUS, hypothyroidism presenting to the office today for management of chronic conditions and to establish care. She presents today with her son, Joe. HTN-compliant with atenolol 50 mg every morning and 25 mg in the evening. HLD- on crestor 5mg Hypothryoidism- levothyroxine 50 mcg daily Unspecified arrhythmia-following with [facility] cardiovascular associates, Dr. Osorio. On atenolol. Asymptomatic Concerns: Concerns with memory. Looking for refill to neurology. Difficulty remembering where objects are. Difficulty remember appts. People need to repeat a lot. Not currenlty driving but reports was related to an episode of lightheadedness while driving, not memory. ROS: General: No fevers, malaise, unintentional weight loss HEENT: No blurred vision, diplopia. No sore throat, nasal congestion, rhinorrhea, sinus pain, ear pain Cardiovascular: No chest pain, palpitations, or leg edema Respiratory: No shortness of breath, wheezing, cough GI: No abdominal pain, nausea, vomiting, diarrhea, constipation, melena, hematochezia : No dysuria, hematuria, increased urinary frequency, decreased urinary output MSK: No myalgia, back pain Neuro: No headaches, weakness, paresthesias Skin: No rashes or lesions EXAM: Constitutional - Awake and Alert, No apparent distress Eyes - PERRL Cardiovascular - S1S2, RRR, No edema Respiratory - Normal lung expansion, Normal respiratory effort, No respiratory distress, CTA bilaterally Extremities - no calf tenderness bilaterally, no swelling Skin - Warm/Dry Neurological - Alert & oriented x2, disoriented to date and situation Psychological - Appropriate affect [facility] Medical History (Updated 06/12/25 @ 10:37 by DANIKA Epps) HLD (hyperlipidemia) HTN (hypertension) Hypothyroid Arrhythmia Surgical History Hx of tonsillectomy Social History Household Members: Children Housing: House Alcohol intake: current Alcohol intake frequency: holidays/special occasions only Patient Tobacco Use Status: Former Tobacco user e-Cigarette/Vaping Use: Never Used service: No Current occupational status: retired Gender identity: Female Cognitive needs: No Hearing needs: No Vision needs: Yes (Rx glasses) Physical exam (Primary Care) Vital Signs: Last Vital Signs Temp 97.4 F 06/12/25 10:25 Pulse 67 06/12/25 10:25 BP 120/80 06/12/25 10:25 Pulse Ox 97 06/12/25 10:25 Oxygen Delivery Method Room Air 06/12/25 10:25 BMI result Body Mass Index 23.2 Tobacco/Smoking Status: Tobacco use Status Tobacco use date assessed 06/12/25 06/12/25 10:27 Patient Tobacco Use Status Former Tobacco user 06/12/25 10:27 e-Cigarette/Vaping Use Never Used 06/12/25 10:27 Coding Level of Care Code New Pt Level 4 (25059) Complex EM visit Add On G2211 Diagnoses Arrhythmia I49.9 Hypothyroid E03.9 Memory loss or impairment R41.3 HTN (hypertension) I10 HLD (hyperlipidemia) E78.5 Assessment & Plan Assessment & Plan (1) Arrhythmia: Code(s): I49.9 - Cardiac arrhythmia, unspecified Category: Medical Plan: Asymptomatic, regular rhythm in the office today. Continue atenolol. Reviewed last note from Cardiology, continue following (2) Hypothyroid: Code(s): E03.9 - Hypothyroidism, unspecified Category: Medical Plan: TSH ordered. Continue levothyroxine 50 mcg daily (3) Memory loss or impairment: Code(s): R41.3 - Other amnesia Category: Medical Plan: Disoriented to date and situation. Referred to memory Clinic (4) HTN (hypertension): Code(s): I10 - Essential (primary) hypertension Category: Medical Plan: Controlled. Continue atenolol (5) HLD (hyperlipidemia): Code(s): E78.5 - Hyperlipidemia, unspecified Category: Medical Plan: Lipid panel ordered. Continue Crestor and Co Q10 Plan Follow-up in the office in 6 months with labs completed following visit today. Orders: Orders Basic Metabolic Panel Today E03.9 - Hypothyroidism, unspecified, E78.5 - Hyperlipidemia, unspecified, I10 - Essential (primary) hypertension, I49.9 - Cardiac arrhythmia, unspecified, R41.3 - Other amnesia Liver Panel Today E03.9 - Hypothyroidism, unspecified, E78.5 - Hyperlipidemia, unspecified, I10 - Essential (primary) hypertension, I49.9 - Cardiac arrhythmia, unspecified, R41.3 - Other amnesia Vitamin B12 Today E03.9 - Hypothyroidism, unspecified, E78.5 - Hyperlipidemia, unspecified, I10 - Essential (primary) hypertension, I49.9 - Cardiac arrhythmia, unspecified, R41.3 - Other amnesia Complete Blood Count Auto Diff Today E03.9 - Hypothyroidism, unspecified, E78.5 - Hyperlipidemia, unspecified, I10 - Essential (primary) hypertension, I49.9 - Cardiac arrhythmia, unspecified, R41.3 - Other amnesia Lipid Panel Today E03.9 - Hypothyroidism, unspecified, E78.5 - Hyperlipidemia, unspecified, I10 - Essential (primary) hypertension, I49.9 - Cardiac arrhythmia, unspecified, R41.3 - Other amnesia TSH reflex Free T4 Today E03.9 - Hypothyroidism, unspecified, E78.5 - Hyperlipidemia, unspecified, I10 - Essential (primary) hypertension, I49.9 - Cardiac arrhythmia, unspecified, R41.3 - Other amnesia Referrals Neurology Referral R41.3 - Other amnesia
[2025-06-12 10:25] VITALS: BP 120/80; PULSE 67; TEMP 36.3; O2SAT 97; BMI 23.2
--- OUTSIDE RECORDS SUMMARY | 2025-06-12 12:11 | XMS_ITS | Patient Health Record ---
Author Organization [facility] Address [address] [place] [id number] Care Team Providers Care Manager Video Name Role Phone Oscar Posada Unavailable [phone] Reason For Referral No Information Plan Of Treatment No Information
--- OUTSIDE RECORDS SUMMARY | 2025-06-12 12:11 | XMS_ITS | Clinical Summary ---
Author Organization [facility] Address [address] [place] [address] Phone Care Team Providers Care Stock Worker And Deliverer Name Role Phone Physician, No Pcp Primary [...] Vaccines (1 of 2) 1999 RSV Immunization Adult Patie nts (1 - 1-dose 75+ series) 01/13/2024 Falls Risk Assessment 07/19/2024 Hepatitis C Screening 07/19/2024 Medicare Annual Wellness Visit 07/19/2024 Osteoporosis Screening (Bone Density Screening) 07/19/2024 Social Influencers of Health Screening 07/19/2024 Depression Screening 10/05/2024 COVID-19 Vaccine (1 - 2023-2 5 season) 2025 Influenza Vaccine (#1) 2025 HIB Vaccines Aged Out No longer eligi [...] age to complete this topic Meningococcal B Vaccine Aged Out No l onger eligible based on patient's age to complete this topic RSV Immunization Patients Un farideh 20 months Aged Out No longer eligible b ased on patient's age to complete this topic Varicella Vaccines Aged Out No longer eligible based on patient's age to complete this topic Insurance MEDICARE Care Teams Stock Worker And Deliverer Relationship Specialty Start Date End Date Physician, No Pcp PCP - General 09/23/24
== END 2025-06-12 10:44 | disposition home or self-care (01) ==
LOC: HO.HMCHD 10:16
PROVIDERS: PCP Internal Medicine; Visit Provider Physician Assistant
DX: I49.9 Cardiac arrhythmia, unspecified (principal); E03.9 Hypothyroidism, unspecified; R41.3 Other amnesia; I10 Essential (primary) hypertension; E78.5 Hyperlipidemia, unspecified

== ENCOUNTER → 2025-06-12 10:15 | Outpatient (BNVA) | payer MEDICARE, BC, SELFPAY | PROVIDERS: PCP Internal Medicine; Visit Provider Physician Assistant | DX: Z76.89 Persons encountering health services in other specified circumstances (principal); I49.9 Cardiac arrhythmia, unspecified; E03.9 Hypothyroidism, unspecified; R41.3 Other amnesia; I10 Essential (primary) hypertension; E78.5 Hyperlipidemia, unspecified; Z79.899 Other long term (current) drug therapy | CPT/HCPCS: 99202 ==

== ENCOUNTER 2025-06-12 11:00 | Outpatient (REF) | payer MEDICARE, BC, SELFPAY ==
[2025-06-12 12:55] LABS: MANUAL DIFF FLAG NO
[2025-06-12 13:11] LABS: Hematocrit 41.5 % (37.0-47.0); Hemoglobin 13.9 g/dl (12.0-16.0); Imm Gran Abs Auto 0.01 X10*3/uL (0.00-0.03); Imm Gran Pct Auto 0.2 % (0.0-0.4); Lymphocytes Absolute Auto 1.8 X10*3/uL (1.2-4.9); Mean Corpuscular HGB Conc 33.5 g/dl (31.0-35.0); Mean Corpuscular Hemoglobin 32.3 pg (27.0-33.0); Mean Corpuscular Volume 96.5 fL (80.0-98.0); NRBC Abs Auto 0.000 X10*3/uL (0.0-0.012); NRBC Pct Auto 0.0 /100WBC (0.0-0.2); Platelet Count 254 X10*3/uL (160-400); Red Blood Count 4.30 X10*6/uL (4.20-5.50); White Blood Count 6.3 X10*3/uL (4.8-10.8)
[2025-06-12 13:55] LABS: Alanine Aminotransferase 19 U/L (0-31); Albumin Level 4.3 g/dL (3.5-5.0); Alkaline Phosphatase 61 U/L (39-117); Anion Gap 12 (12-20); Aspartate Amino Transferase 28 U/L (5-31); Blood Urea Nitrogen 13 mg/dL (9-16); Calcium 9.1 mg/dL (8.4-10.2); Carbon Dioxide 28 mmol/L (22-29); Chloride 108 mmol/L (96-108); Cholesterol 175 mg/dL (<200); Estimated Glomerular Filt Rate > 60; HDL Cholesterol 43 mg/dL (>40); Potassium 4.3 mmol/L (3.3-5.1); Sodium 144 mmol/L (135-145); Total Protein 7.9 g/dL (6.5-8.0); Triglycerides 129 mg/dL (<150)
[2025-06-12 14:00] LABS: Vitamin B12 319 pg/mL (200-900)
[2025-06-13 15:04] LABS: Kappa/Lambda Lt Ch Free Ratio 0.43 (0.26-1.65)
== END 2025-06-12 11:01 | disposition home or self-care (01) ==
LOC: HO.10HDL 11:00
PROVIDERS: Internal Medicine; Visit Provider Physician Assistant
DX: I10 Essential (primary) hypertension (principal); I49.9 Cardiac arrhythmia, unspecified; E78.5 Hyperlipidemia, unspecified; E03.9 Hypothyroidism, unspecified; R41.3 Other amnesia; D47.2 Monoclonal gammopathy
CPT/HCPCS: 36415; 80053; 80061; 80076; 82248; 82607; 82784; 83521; 84443; 85025; 86334

== ENCOUNTER 2025-07-28 10:00 | Outpatient (AMB) | payer MEDICARE, BC, SELFPAY ==
--- NOTE | 2025-07-28 10:01 | MHC.OFFWIV ---
Intake Vital Signs 07/28/25 10:02 Height 5 ft 7 in Weight 150 lb BMI 23.5 BP 120/70 Blood Pressure Location Rt brachial Position Sitting Pulse 70 Pulse Source Pulse Oximeter Temp 97.8 F Temp Source Oral Pulse Oximetry (%) 95 Oxygen Delivery Method Room Air Intake Visit Reasons: EP Having trouble urinating Intake Note: EP complains of urgency in urination for a week. Patient Tobacco Use Status: Former Tobacco user Allergies No Known Allergies Allergy (Verified 07/28/25 10:10) Do you need a note to return to daycare/school/sports/work: No HPI HPI Comments History of Present Illness Details This is a 75-year-old female with a past medical history of hypothyroidism, hypertension and hyperlipidemia presenting for evaluation of difficulty urinating. Patient states that she has had urinary urgency over the past 2 weeks but denies having any abdominal pain, flank pain, dysuria, incontinence or hematuria. [facility] Medical History (Updated 07/28/25 @ 11:13 by Dahiana Dang PA-C) HLD (hyperlipidemia) HTN (hypertension) Hypothyroid Arrhythmia Surgical History Hx of tonsillectomy Social History Household Members: Children Housing: House Alcohol intake: current Alcohol intake frequency: holidays/special occasions only Patient Tobacco Use Status: Former Tobacco user e-Cigarette/Vaping Use: Never Used service: No Current occupational status: retired Gender identity: Female Cognitive needs: No Hearing needs: No Vision needs: Yes (Rx glasses) Review of Systems Const All systems reviewed & are unremarkable except as noted in HPI and below Denies chills, Denies fatigue, Denies fever(s) and Denies malaise GI Denies abdominal pain Denies hematuria, Reports urinary frequency, Reports difficulty voiding, Denies dysuria, Denies flank pain, Reports urinary hesitancy and Reports urinary urgency Musc Reports no additional complaints Skin/Breast Reports system reviewed and no additional complaints, except as documented Psych Reports no additional complaints Endo Reports no additional complaints and Denies fatigue Pedro/Lymph Reports no additional complaints Aller/Immun Reports no additional complaints Physical Exam Vital Signs: Last Vital Signs Temp 97.8 F 07/28/25 10:02 Pulse 70 10/24/25 10:02 BP 120/70 07/28/25 10:02 Pulse Ox 95 07/28/25 10:02 Oxygen Delivery Method Room Air 07/28/25 10:02 BMI result Body Mass Index 23.5 Const General: cooperative, healthy appearing, comfortable, no acute distress, well developed, alert and awake; No ill appearing or lethargic Nutritional Appearance: average body habitus Orientation/consciousness: patient oriented x3 and No lethargic Limitations: no limitations GI Inspection: Yes normal to inspection, No distended and No visible pulsation Palpation (GI): Soft to palpation, nontender and no guarding Auscultation: normal bowel sounds General: Yes Bimanual renal exam normal bilaterally, Yes bladder normal to palpation and Yes no CVA tenderness Bimanual exam- vagina & uterus: bladder normal to palpation Back/Spine/Pelvis Back: no CVA tenderness Skin General skin exam: no rashes or lesions noted Neuro General: patient oriented x3 Psych Other: Patient appears to have cognitive difficulties related to short-term memory; son is present and is answering most questions related to HPI. Patient is pleasant, interactive and in no distress. Appearance: grossly normal Mental Status: mental status grossly normal Speech and movement: Normal speech and movement present Affect: normal affect Insight: Fair insight present (Psych) Judgement: Fair judgement present (Psych) Results Reviewed Results Reviewed: Patient was able to void while in the office however she was unable to void into the urine cup. Assessment & Plan Assessment & Plan (1) Urinary urgency: Comment: Patient is unable to provide a urine sample here in the office. She has no abdominal tenderness, CVA tenderness and is afebrile. Patient will be discharged home with a urine cup, hat for the toilet and instructions on how to submit the urine sample. Instructions are relayed to and reviewed with her son who is present. Code(s): R39.15 - Urgency of urination Plan: Patient will return a urine sample when possible and an order for urine culture will be placed. No antibiotics were prescribed at this time. Orders: Orders Urine Culture Today R39.15 - Urgency of urination Coding Level of Care Code Est Pt Level 3 (94472) Diagnoses Urinary urgency R39.15 Time Spent (min) 25
[2025-07-28 10:02] VITALS: BP 120/70; PULSE 70; TEMP 36.6; O2SAT 95; BMI 23.5
--- OUTSIDE RECORDS SUMMARY | 2025-07-28 11:16 | XMS_ITS | Clinical Summary ---
Author Organization [facility] Address [address] [place] [address] Phone Care Team Providers Care Systems Analyst Developer Name Role Phone Physician, No Pcp Primary [...] complete this topic Insurance MEDICARE Care Teams Systems Analyst Developer Relationship Specialty Start Date End Date Physician, No Pcp PCP - General 09/23/24
--- OUTSIDE RECORDS SUMMARY | 2025-07-28 11:16 | XMS_ITS | Patient Health Record ---
Author Organization [facility] Address [address] [place] [id number] Care Team Providers Care Knot Tier Name Role Phone Oscar Posada Unavailable [phone] Reason For Referral No Information Plan Of Treatment No Information
== END 2025-07-28 11:18 | disposition home or self-care (01) ==
PROVIDERS: PCP Internal Medicine; Visit Provider Physician Assistant
DX: R39.15 Urgency of urination (principal)

== ENCOUNTER 2025-07-28 12:30 | Outpatient (REF) | payer MEDICARE, BC, SELFPAY | END 2025-07-28 12:31 | disposition home or self-care (01) | LOC: HO.HMGCLNP 12:30 | PROVIDERS: PCP Internal Medicine; Visit Provider Physician Assistant | DX: R39.15 Urgency of urination (principal) | CPT/HCPCS: 87086; 87088; 87186; 99212 ==

== ENCOUNTER 2025-08-09 16:25 | Outpatient (AMB) | payer MEDICARE, BC, SELFPAY ==
[2025-08-09 16:29] VITALS: BP 124/84; PULSE 84; TEMP 36.9; O2SAT 95; BMI 23.5
--- NOTE | 2025-08-09 16:29 | AM.OFFWIN_ITS ---
Intake Vital Signs 08/09/25 16:29 Height 5 ft 7 in Weight 150 lb BMI 23.5 BP 124/84 Blood Pressure Location Lt brachial Position Sitting Pulse 84 Pulse Source Pulse Oximeter Temp 98.5 F Temp Source Oral Pulse Oximetry (%) 95 Oxygen Delivery Method Room Air Intake Visit Reasons: ep pain on right side of head past few days Intake Note: pt presents with severe right sided head pain, feels better with pressure applied- started yesterday- denies injury Patient Tobacco Use Status: Former Tobacco user Allergies No Known Allergies Allergy (Verified 08/15/25 10:21) Do you need a note to return to daycare/school/sports/work: No HPI HPI Comments History of Present Illness Details History of Present Illness - The patient is a 75-year-old female pr esenting with a headache. - The headache is described as sharp and located on the right side of the head, with no history of trauma or falls. - The patient denies any changes in visi on, hearing, speech difficulties, confusion, nausea, or vomiting. - Denies sensitivity to light or sound. - The headache has been present for hany hs, with occasional relief, but returned today. - She has not taken any medications to r elieve her headache. - The patient has not taken ibuprofen an d is not on blood thinners. - The patient reports normal drinking foster bits but smaller meals overall, with no ear pain except occasional blockage in the left ear. Review of Systems - Neurological: Reports sharp headache o n the right side of the head. Denies changes in vision, hearing, speech difficulties, confusion, nausea, or vomiting. - Gastrointestinal: Reports normal drink ing habits but smaller meals. - Ears: Denies ear pain, reports occasio nal blockage in the left ear. All systems reviewed and are unremarkable except as noted in HPI Physical Exam General: Cooperative, healthy appearing, comfortable, no acute distress and well developed Orientation: Patient oriented x3 Limitations: No limitations Head: Normal to inspection Ears: Hearing grossly normal bilaterally Nose: Normal External nose present Face and sinus: Normal facial exam Eyes: Appearance normal, both eyes and all related structures Neck: Normal visual inspection and Yes full ROM Respiratory: Normal respiratory effort and able to speak in complete sentences. Skin: No rashes or lesions noted Neuro: Patient oriented x3 Extremities: Normal to inspection [facility] Medical History HLD (hyperlipidemia) HTN (hypertension) Hypothyroid Arrhythmia Surgical History Hx of tonsillectomy Social History Household Members: Children Housing: House Alcohol intake: current Alcohol intake frequency: holidays/special occasions only Patient Tobacco Use Status: Former Tobacco user e-Cigarette/Vaping Use: Never Used service: No Current occupational status: retired Gender identity: Female Cognitive needs: No Hearing needs: No Vision needs: Yes (Rx glasses) Physical Exam Vital Signs: Last Vital Signs Temp 98.5 F 08/09/25 16:29 Pulse 84 08/09/25 16:29 BP 124/84 08/09/25 16:29 Pulse Ox 95 08/09/25 16:29 Oxygen Delivery Method Room Air 08/09/25 16:29 BMI result Body Mass Index 23.5 Assessment & Plan Assessment & Plan (1) Headache: Code(s): R51.9 - Headache, unspecified Qualifiers: Headache type: unspecified Headache chronicity pattern: acute headache Intractability: not intractable Qualified Code(s): R51.9 - Headache, unspecified Plan: Patient was informed and verbally consented to the use of an ambient scribe for clinic note documentation during this visit. Occipital Headache - Advise patient to take 1000 mg of Tylenol every 8 hours and consider adding 600 mg of ibuprofen every 6 hours if needed. - Recommend increased hydration and caffeine intake to alleviate symptoms. - Instruct patient to seek emergency care if experiencing changes in vision, hearing, confusion, or balance issues. Coding Level of Care Code Est Pt Level 3 (62139) Diagnoses Acute nonintractable headache, unspecified headache type R51.9 Headache type: unspecified Headache chronicity pattern: acute headache Intractability: not intractable
--- OUTSIDE RECORDS SUMMARY | 2025-08-09 19:01 | XMS_ITS | Patient Health Record ---
Author Organization [facility] Address [address] [place] [id number] Care Team Providers Care Packager Hand Name Role Phone Oscar Posada Unavailable [phone] Reason For Referral No Information Plan Of Treatment No Information
--- OUTSIDE RECORDS SUMMARY | 2025-08-09 19:01 | XMS_ITS | Clinical Summary ---
Author Organization [facility] Address [address] [place] [address] Phone Care Team Providers Care Time Clock Inspector Name Role Phone Physician, No Pcp Primary [...] complete this topic Insurance MEDICARE Care Teams Time Clock Inspector Relationship Specialty Start Date End Date Physician, No Pcp PCP - General 09/23/24
== END 2025-08-09 16:30 | disposition home or self-care (01) ==
PROVIDERS: PCP Internal Medicine; Visit Provider Physician Assistant
DX: R51.9 Headache, unspecified (principal)

== ENCOUNTER 2025-08-09 17:52 | Emergency (ER) | payer MEDICARE, BC, SELFPAY ==
--- NOTE | ~2025-08-09 | CT_ITS ---
CLINICAL HISTORY: right sided headache CT head without contrast Comparison: None provided Findings: No intra-axial mass, midline shift, hydrocephalus, or acute hemorrhage. No significant atrophy-like change or white matter disease. The visualized paranasal sinuses and mastoid air cells are normal. The orbits are within normal limits. There is no acute fracture. IMPRESSION: 1. No acute intracranial findings. This document has been electronically signed by: Giuseppe Guerrier MD on 08/09/2025 18:58:07
[2025-08-09 18:00] VITALS: BP 160/78; PULSE 83; RESP 18; TEMP 36.6; O2SAT 98; BMI 23.1
--- NOTE | 2025-08-09 18:13 | ED.GENADULT ---
HPI - General Adult General Chief complaint: Headache Stated complaint: right side headache pt feels better when pressing Time Seen by Provider: 08/09/25 22:39 Source: patient, family (Patient's son), RN notes reviewed and old records reviewed Mode of arrival: ambulatory Limitations: no limitations History of Present Illness ED Provider: Danuta RUBI narrative: 75-year-old female with a past medical history significant for dementia, hypertension, hyperlipidemia monoclonal gammopathy, polyarthralgia presents for evaluation of a headache. Patient presents with her son. She has been complaining of headaches to the right side of her head for about 1 week. She went to urgent care today and was recommended she take ibuprofen and Tylenol which she did. At the time my evaluation in the emergency department she currently has no headache. She denies any visual changes or visual changes in the last 30 days She denies any trauma to the head or neck She has not fallen pain She denies any lightheadedness, weakness, slurred speech Related Data Home Medications ?Medication ?Instructions ?Recorded ?Confirmed atenolol 25 mg tablet 25 mg PO DAILY 09/13/20 05/18/24 coenzyme Q10 10 mg capsule 10 mg PO TID 04/18/24 05/18/24 atenolol 50 mg tablet 50 mg PO QAM 06/12/25 Previous Rx's ?Medication ?Instructions ?Recorded rosuvastatin 5 mg tablet 5 mg PO DAILY #90 tabs 05/25/25 levothyroxine 50 mcg tablet 50 mcg PO DAILY #90 tabs 06/01/25 cefuroxime axetil 500 mg tablet 500 mg PO Q12H #10 tabs 07/31/25 prednisone 20 mg tablet 40 mg (2 x 20 mg) PO DAILY #10 tabs 08/09/25 Allergies Allergy/AdvReac Type Severity Reaction Status Date / Time No Known Allergies Allergy Verified 08/09/25 18:03 Review of Systems Constitutional: Constitutional: Denies body ache(s), Denies chills, Denies fatigue, Denies fever(s) and Reports headache(s) Eyes: Eyes: Denies blind spots, Denies blurry vision, Denies decreased night vision, Denies itchy eyes, Denies loss of peripheral vision and Denies loss of vision ENT: Denies vertigo, Denies dizziness, Denies dry mouth and Reports headache(s) Cardiovascular: Cardiovascular: Denies chest pain, Denies dyspnea and Denies dyspnea on exertion Respiratory: Respiratory: Denies cough, Denies dyspnea and Denies dyspnea on exertion Gastrointestinal: Gastrointestinal: Denies abdominal pain, Denies nausea and Denies vomiting Musculoskeletal: Musculoskeletal: Denies back pain Integumentary/Breasts: Skin/Breast: Denies rash Neurologic: Denies vertigo, Denies dizziness, Reports headache(s) and Denies loss of vision Endocrine: Endocrine: Denies fatigue Allergic/Immunologic: Allergic/Immunologic: Denies itchy eyes PMFSH Past Medical History Medical History (Updated 08/10/25 @ 00:00 by Background Dakaron) HLD (hyperlipidemia) HTN (hypertension) Hypothyroid Arrhythmia Surgical History Hx of tonsillectomy Social History Social History Household Members: Children Housing: House Alcohol intake: current Alcohol intake frequency: holidays/special occasions only Patient Tobacco Use Status: Former Tobacco user e-Cigarette/Vaping Use: Never Used Advance Directives: No Advance Directives Information Provided: No Do you have a plan to hurt others: No Plan service: No Current occupational status: retired Gender identity: Female Cognitive needs: No Hearing needs: No Vision needs: Yes (Rx glasses) Physical Exam ED Vital Signs: Vital Signs - 24 hr 08/09/25 18:00 08/09/25 23:17 Temperature 98 F 98 F Pulse Rate 83 83 Respiratory Rate 18 18 Blood Pressure 160/78 H 160/78 H Pulse Oximetry 98 98 Oxygen Delivery Method Room Air Room Air BMI result Body Mass Index 23.1 Const General: healthy appearing, comfortable, no acute distress, alert and awake Nutritional Appearance: well nourished Orientation/consciousness: patient oriented x3 HENMT Head: Yes normocephalic and Yes atraumatic Throat: Yes posterior oropharynx normal Eyes Periorbital: periorbital findings normal Eyelids: Yes eyelids normal Conjunctivae: conjunctivae normal Sclerae: sclerae normal Corneas: corneas normal Pupils: Equal, round and reactive pupils present EOM: EOMs intact bilaterally Direct Ophthalmoscopy: normal light reflex, no photophobia and no papilledema Neck Neck: Yes full ROM Resp Effort & Inspection: normal respiratory effort, able to speak in complete sentences and not labored Cardio Rate: regular rate Rhythm: regular rhythm GI Inspection: No distended Palpation (GI): Soft to palpation, not firm, nontender, no guarding and not rigid Skin General skin exam: elasticity normal Neuro General: patient oriented x3 Cranial nerves: Yes CN's II-XII intact bilaterally, Yes Equal, round and reactive pupils present and Yes Bilaterally intact EOM present Cognition (Neuro): normal cognition Extrem Other: Moving all extremities well without any obvious deformities Course Course Course Narrative: RME: 75-year-old female presents to ED for right-sided headache off and on for the past 3-4 days. Patient denies any change or blurry vision, chest pain, shortness of breath, slurred speech, facial droop, dizziness, nausea or vomiting. Patient denies any recent trauma. Presently patient has no headache but had 1 earlier in the day. Labs head CT ordered Medications Administered Discontinued Medications Generic Name Dose Route Start Last Admin Trade Name Freq PRN Reason Stop Dose Admin Prednisone 40 mg 08/09/25 23:11 08/09/25 23:15 Prednisone 20 Mg Tablet PO 08/09/25 23:12 40 mg ONCE ONE Administration Medical Decision Making Medical Decision Making [facility] Narrative: 75-year-old female with a past medical history as above presents for evaluation of a headache. Her vital signs are stable, and time my evaluation she is asymptomatic, she had no longer has a headache. She has an NIH stroke score of 0, nonfocal exam. She did have a CT scan ordered in triage which was unremarkable. No evidence of intracranial hemorrhage, mass effect or midline shift. She had labs that were significant for an ESR of 90. The patient does have a history of elevated ESR but she has never been this high in the past. Given her unilateral headache, age and female gender, she has a higher risk for temporal arteritis. At this time I feel is appropriate to treat with prednisone in fact have her follow up with vascular surgery. I did discuss this with the patient in his son who is bedside. I discussed return precautions as well as potential side effects of prednisone use. Differential Diagnosis Differential Diagnoses: The differential diagnosis associated with the presentation includes Acute headache Intracranial hemorrhage Mass effect Intracranial mass Temporal arteritis Tension headache Migraine headache Cluster headache Lab Data [facility] Lab Attestation statement: I reviewed the patient's lab results. No leukocytosis or anemia. Normal platelet count. No significant electrolyte abnormalities warranting mentioned. Elevated inflammatory markers including ESR of 90 08/09/25 19:56 08/09/25 19:56 Labs: Lab Results 08/09/25 Range/Units 19:56 WBC 6.6 (4.8-10.8) X10*3/uL RBC 4.58 (4.20-5.50) X10*6/uL Hgb 14.3 (12.0-16.0) g/dl Hct 43.0 (37.0-47.0) % MCV 93.9 (80.0-98.0) fL MCH 31.2 (27.0-33.0) pg MCHC 33.3 (31.0-35.0) g/dl RDW 13.4 (11.0-16.0) % Plt Count 176 D (160-400) X10*3/uL MPV 9.4 (9.4-12.3) fL Immature Gran % (Auto) 0.2 (0.0-0.4) % Neut % (Auto) 71.3 (45-73) % Lymph % (Auto) 17.9 L (20-40) % Vance % (Auto) 8.4 (2-11) % Eos % (Auto) 1.7 (0-4) % Baso % (Auto) 0.5 (0-2) % Lymph # (Auto) 1.2 (1.2-4.9) X10*3/uL Vance # (Auto) 0.6 (0.1-1.2) X10*3/uL Eos # (Auto) 0.1 (0.0-0.4) X10*3/uL Baso # (Auto) 0.0 (0.0-0.2) X10*3/uL Abs Immat Gran (auto) 0.01 (0.00-0.03) X10*3/uL Absolute Neuts (auto) 4.7 (2.0-8.3) x10*3/uL Absolute Nucleated RBC 0.000 (0.0-0.012) X10*3/uL Nucleated RBC % (auto) 0.0 (0.0-0.2) /100WBC ESR 90 H (0-20) MM/HR Sodium 140 (135-145) mmol/L Potassium 3.7 (3.3-5.1) mmol/L Chloride 109 H (96-108) mmol/L Carbon Dioxide 22 (22-29) mmol/L Anion Gap 13 (12-20) BUN 10 (9-16) mg/dL Creatinine 0.76 (0.5-1.4) mg/dL Estim Creat Clear Calc 61.2 Estimated GFR > 60 Random Glucose 102 (60-115) mg/dL Calcium 9.4 (8.4-10.2) mg/dL Total Bilirubin 0.3 (0.0-1.0) mg/dL AST 20 (5-31) U/L ALT 15 (0-31) U/L Alkaline Phosphatase 60 (39-117) U/L C-Reactive Protein 3.33 H (< or = 0.50) mg/dL Total Protein 7.8 (6.5-8.0) g/dL Albumin 4.1 (3.5-5.0) g/dL COVID-19 (SCOTT) Negative (Negative) COVID-19 Clin Com See Note Influenza Type A (JANE) Negative (Negative) Influenza Type B (JANE) Negative (Negative) Influenza A & B Note See Note Discharge Plan Discharge Clinical Impression: Headache, Elevated erythrocyte sedimentation rate Patient Disposition: Home, Self-Care Instructions: Temporal Arteritis (ED) Additional Instructions: Your workup in the ER today was mostly reassuring. Your physical exam was reassuring The CT scan was unremarkable. However 1 of your blood tests, an ESR or erythromycin sedimentation rate was elevated With this marker being elevated and having a unilateral headache, there is some concern for a condition called giant cell arteritis or temporal arteritis This is evaluated with a biopsy of an artery by a vascular surgeon. For this reason I am prescribing you prednisone 40 mg daily for the next 5 days. Follow up with the vascular surgeon at the number provided, return for new or worsening symptoms Prescriptions: New prednisone 20 mg tablet 40 mg PO DAILY Qty: 10 0RF No Action rosuvastatin 5 mg tablet 5 mg PO DAILY Qty: 90 1RF levothyroxine 50 mcg tablet 50 mcg PO DAILY Qty: 90 1RF cefuroxime axetil 500 mg tablet 500 mg PO Q12H Qty: 10 0RF atenolol 25 mg tablet 25 mg PO DAILY coenzyme Q10 10 mg capsule 10 mg PO TID atenolol 50 mg tablet 50 mg PO QAM Referrals: Homero Gerard MD [Physician, Vascular Surgery] Referral Note: unilateral headache with elevated ESR Interventions: ED Discharge Assessment Last Done: 08/09/25 23:17 Discharge Date/Time: 08/09/25 23:18 Print Language: Brazilian
[2025-08-09 20:01] LABS: MANUAL DIFF FLAG NO
[2025-08-09 20:04] LABS: Hematocrit 43.0 % (37.0-47.0); Hemoglobin 14.3 g/dl (12.0-16.0); Imm Gran Abs Auto 0.01 X10*3/uL (0.00-0.03); Imm Gran Pct Auto 0.2 % (0.0-0.4); Lymphocytes Absolute Auto 1.2 X10*3/uL (1.2-4.9); Mean Corpuscular HGB Conc 33.3 g/dl (31.0-35.0); Mean Corpuscular Hemoglobin 31.2 pg (27.0-33.0); Mean Corpuscular Volume 93.9 fL (80.0-98.0); NRBC Abs Auto 0.000 X10*3/uL (0.0-0.012); NRBC Pct Auto 0.0 /100WBC (0.0-0.2); Platelet Count 176 X10*3/uL (160-400); Red Blood Count 4.58 X10*6/uL (4.20-5.50); White Blood Count 6.6 X10*3/uL (4.8-10.8)
[2025-08-09 20:17] LABS: Alanine Aminotransferase 15 U/L (0-31); Albumin Level 4.1 g/dL (3.5-5.0); Alkaline Phosphatase 60 U/L (39-117); Anion Gap 13 (12-20); Aspartate Amino Transferase 20 U/L (5-31); Blood Urea Nitrogen 10 mg/dL (9-16); Calcium 9.4 mg/dL (8.4-10.2); Carbon Dioxide 22 mmol/L (22-29); Chloride 109 mmol/L (96-108); Creatinine Clr Calc Pharmacy 61.2; Estimated Glomerular Filt Rate > 60; Potassium 3.7 mmol/L (3.3-5.1); Sodium 140 mmol/L (135-145); Total Protein 7.8 g/dL (6.5-8.0)
[2025-08-09 20:20] LABS: COVID-19 Test Negative (Negative); IDNOW Serial# 55D5AD1C; IDNOW Serial# 58CA691E; Influenza B2 Negative (Negative)
[2025-08-09 20:57] LABS: Erythrocyte Sedimentation Rate 90 MM/HR (0-20)
[2025-08-09 23:17] VITALS: BP 160/78; PULSE 83; RESP 18; TEMP 36.6; O2SAT 98
== END 2025-08-09 23:18 | disposition home or self-care (01) ==
PROVIDERS: Physician Assistant; Emergency Provider Emergency Medicine; PCP Internal Medicine
DX: R51.9 Headache, unspecified (principal); I10 Essential (primary) hypertension; E78.5 Hyperlipidemia, unspecified; Z87.891 Personal history of nicotine dependence; Z03.818 Encounter for observation for suspected exposure to other biological agents ruled out
CPT/HCPCS: 70450; 80053; 85025; 85652; 86140; 87502; 87635; 99212; 99282; 99284

== ENCOUNTER → 2025-08-09 18:13 | Outpatient (BNV) | payer MEDICARE, BC, SELFPAY | PROVIDERS: PCP Internal Medicine; Visit Provider Radiology Diagnostic Radiology | DX: R51.9 Headache, unspecified (principal) | CPT/HCPCS: 70450 ==

== ENCOUNTER 2025-08-15 10:14 | Outpatient (AMB) | payer MEDICARE, BC, SELFPAY ==
--- NOTE | 2025-08-15 10:19 | A.OFFVIS_ITS ---
Intake Visit Reasons: ED Ref for temporal arteritis Intake Note: Patient presents for ED referral for temporal arteritis. Was given 5 days of prednisone, does not have any complaints today. Accompanied by: Child Allergies No Known Allergies Allergy (Verified 08/15/25 10:21) [facility] HPI ED Ref for temporal arteritis: Details: The patient is a 75-year-old female presenting with right-sided headache and suspected temporal arteritis. The headache began on 08/09/2025 and was characterized by sharp, intense pain on the right side, associated with swelling and pressure in the temporal artery region. The patient was seen in the emergency room and was administered prednisone, which alleviated the symptoms. The patient denies any prior episodes of similar headaches and has no history of smoking or diabetes. Inflammatory markers, ESR and CRP, were noted to be elevated, indicating inflammation. [facility] Medical History HLD (hyperlipidemia) HTN (hypertension) Hypothyroid Arrhythmia Surgical History Hx of tonsillectomy Social History Household Members: Children Housing: House Alcohol intake: current Alcohol intake frequency: holidays/special occasions only Patient Tobacco Use Status: Former Tobacco user e-Cigarette/Vaping Use: Never Used service: No Current occupational status: retired Gender identity: Female Cognitive needs: No Hearing needs: No Vision needs: Yes (Rx glasses) Review of Systems Const All systems reviewed & are unremarkable except as noted in HPI and below Reports no additional complaints ENT Reports Normal hearing present Card Denies chest pain, Denies chest pain at rest, Denies chest pain with activity and Denies pedal edema Resp Denies cough GI Denies abdominal pain Musc Denies abnormal gait, Denies muscle cramps and Denies radiating pain into limb Skin/Breast Denies skin ulcer and Denies wounds Neuro Reports Normal hearing present and Denies abnormal gait Psych Reports no additional complaints Physical Exam Const General: cooperative, healthy appearing and comfortable Orientation/consciousness: oriented to person, oriented to place and oriented to time HEENT Head: Yes normal to inspection Neck Neck: Yes normal visual inspection Carotids: no bruits Chest Chest palpation & inspection: normal inspection of the chest Resp Effort & Inspection: normal respiratory effort and able to speak in complete sentences Auscultation: clear to auscultation bilaterally, no crackles, no rales, no rhonchi and no wheezes Cardio Rate: regular rate Rhythm: regular rhythm Heart sounds: S1 normal heart sound present and S2 normal heart sound present Bruits: no carotid bruits Peripheral pulses: Peripheral pulses 2+ throughout GI Inspection: Yes normal to inspection Skin Wounds: no wounds Hair: normal Neuro General: oriented to person, oriented to place and oriented to time Cranial nerves: Yes CN's II-XII intact bilaterally and Yes Normal hearing present Cognition (Neuro): normal cognition Motor exam (neuro): 5/5 motor strength present throughout Extrem Other: venous exam: No significant superficial varicosities or spider telangiectasias, minimal edema General: No clubbing, No cyanosis and No edema Psych Appearance: grossly normal Mental Status: mental status grossly normal Speech and movement: Normal speech and movement present Results Reviewed Results Reviewed: Laboratory testing demonstrates ESR of 90 and CRP of 3.33 Assessment & Plan Assessment & Plan (1) Giant cell arteritis: Code(s): M31.6 - Other giant cell arteritis Category: Medical Plan: In short there is concern of giant cell arteritis. Light of her clinical symptoms and elevated inflammatory markers we will perform a right temporal artery biopsy. Risks benefits complications of the procedure were discussed in detail with the patient. She agreed and consented. We will try to get her onto the schedule as soon as possible. Thank you for allowing us to assist in her care. Coding Level of Care Code New Pt Level 4 (46094) Diagnoses Giant cell arteritis M31.6
== END 2025-08-15 10:55 | disposition home or self-care (01) ==
LOC: HO.HVS 10:15
PROVIDERS: PCP Internal Medicine; Visit Provider Surgery Vascular Surgery
DX: M31.6 Other giant cell arteritis (principal)
CPT/HCPCS: 99204

== ENCOUNTER → 2025-08-15 10:14 | Outpatient (BNVA) | payer MEDICARE, BC, SELFPAY | PROVIDERS: PCP Internal Medicine; Visit Provider Surgery Vascular Surgery | DX: Z09 Encounter for follow-up examination after completed treatment for conditions other than malignant neoplasm (principal); M31.6 Other giant cell arteritis | CPT/HCPCS: 99202 ==

== ENCOUNTER 2025-08-21 12:32 | Day surgery (SDC) | payer MEDICARE, BC, SELFPAY ==
--- OUTSIDE RECORDS SUMMARY | 2025-08-15 14:01 | XMS_ITS | Clinical Summary ---
Author Organization [facility] Address [address] [place] [address] Phone Care Team Providers Care Gas Maker Helper Name Role Phone Physician, No Pcp Primary [...] Depression Screening 10/05/2024 COVID-19 Vaccine (1 - 2024-2 6 season) 2025 Influenza Vaccine (#1) 2025 HIB [...] complete this topic Insurance MEDICARE Care Teams Gas Maker Helper Relationship Specialty Start Date End Date Physician, No Pcp PCP - General 09/23/24
--- OUTSIDE RECORDS SUMMARY | 2025-08-15 14:01 | XMS_ITS | Patient Health Record ---
Author Organization [facility] Address [address] [place] [id number] Care Team Providers Care Interior Surface Insulation Worker Name Role Phone Oscar Posada Unavailable [phone] Reason For Referral No Information Plan Of Treatment No Information
--- NOTE | 2025-08-16 14:10 | HO.ANESPROP2 ---
Documented by User: Malinda Cortes NP 08/16/25 14:12 HPI - Anesthesia Eval Consult details Narrative: 75 yr old female for temporal artery biopsy Follows [facility] for h/o palpitations, on atenolol: last visit 04/2025, she denied any symptoms PMFSH Active Problems Active Problems: All Active Problems (Updated 08/16/25 @ 07:16 by Velma Manjarrez PA-C) Urinary urgency (Acute) Hypothyroid (Acute) Arrhythmia (Acute) HLD (hyperlipidemia) (Acute) HTN (hypertension) (Acute) Memory loss or impairment (Acute) MGUS (monoclonal gammopathy of unknown significance) (Acute) Polyarthralgia (Acute) Elevated erythrocyte sedimentation rate (Acute) Localized osteoarthritis of right ankle (Acute) Osteoarthritis of left knee (Acute) Past Medical History Medical History HLD (hyperlipidemia) HTN (hypertension) Hypothyroid Arrhythmia Surgical History Surgical History Hx of tonsillectomy Social History Social History Household Members: Children Housing: House Alcohol intake: current Alcohol intake frequency: holidays/special occasions only Patient Tobacco Use Status: Former Tobacco user e-Cigarette/Vaping Use: Never Used Use of substances other than those prescribed or required for medical reasons: No Are you DNR?: No Advance Directives: No Advance Directives Information Provided: Yes Patient : No : No service: No Current occupational status: retired Gender identity: Female Cognitive needs: No Hearing needs: No Vision needs: Yes (Rx glasses) Meds Allergies Allergy/AdvReac Type Severity Reaction Status Date / Time No Known Allergies Allergy Verified 08/15/25 10:21 Home Medications ?Medication ?Instructions ?Recorded ?Confirmed ?Last Taken ?Type atenolol 25 mg tablet 25 mg PO DAILY 09/13/20 05/18/24 Unknown History coenzyme Q10 10 mg capsule 10 mg PO TID 04/18/24 05/18/24 Unknown History atenolol 50 mg tablet 50 mg PO QAM 06/12/25 Unknown History Documented by User: Matt Marie MD 08/21/25 15:36 ON LICENSE OF [facility] Past Medical History Medical History HLD (hyperlipidemia) HTN (hypertension) Hypothyroid Arrhythmia Family History Family history of problems with anesthesia: No Surgical History Surgical History Hx of tonsillectomy History of Problems with Anesthesia: No Social History Social History Household Members: Children Housing: House Alcohol intake: current Alcohol intake frequency: holidays/special occasions only Patient Tobacco Use Status: Former Tobacco user e-Cigarette/Vaping Use: Never Used Use of substances other than those prescribed or required for medical reasons: No Are you DNR?: No Advance Directives: No Advance Directives Information Provided: Yes Patient : No : No service: No Current occupational status: retired Gender identity: Female Cognitive needs: No Hearing needs: No Vision needs: Yes (Rx glasses) Meds Allergies Allergy/AdvReac Type Severity Reaction Status Date / Time No Known Allergies Allergy Verified 08/15/25 10:21 Home Medications ?Medication ?Instructions ?Recorded ?Confirmed ?Last Taken ?Type atenolol 25 mg tablet 25 mg PO DAILY 09/13/20 05/18/24 Unknown History coenzyme Q10 10 mg capsule 10 mg PO TID 04/18/24 05/18/24 Unknown History atenolol 50 mg tablet 50 mg PO QAM 06/12/25 Unknown History Exam Exam Date and Time: 08/21/2025 Narrative Narrative: memory deficits Airway Mallampati Class: II TM Dist: >3cm Neck ROM: Full Loose/Missing/Broken Teeth: Yes (multiple chipped) Heart: rrr Lungs: ctab vesicular Assessment and Plan Assessment Anesthesia Assessment: Anesthesia Plan Discussed and Chart Reviewed Final Anesthetic Review Family History of Problems with Anesthesia: No History of Problems with Anesthesia: No NPO: Yes ASA Class: III Final Preanesthetic Review: No Changes in Pt Med Stat, Meds/Allgs Chart Reviewed, Consent Obtained/Reviewed and Anes Risks/Benef Reviewed Patient Risk: Low Procedure Risk: Low Anesthetic Plan Anesthetic Plan: GA Disposition: Standard PACU
--- NOTE | 2025-08-21 07:24 | MHC.SHP ---
Pre-Procedural Eval Section A - 24 Hr Update-Section A only Date of Service: 08/21/25 The patient is an INPATIENT: No Changes since office visit: Yes Patient answered all questions The patient has been examined within 24 hours of the surgical procedure. The History & Physical has been completed within 30 days and I have reviewed it.: Yes Section B - Complete if H&P > 30 days Chief Complaint: Other giant cell arteritis Allergies: Allergies Allergy/AdvReac Type Severity Reaction Status Date / Time No Known Allergies Allergy Verified 08/15/25 10:21 Plan I have reviewed the history and physical and performed a pertinent physical examination on my patient. No changes have occurred unless specified. Time Spent With Patient Time: Total time managing care of this patient today ____ minutes.
[2025-08-21 13:02] VITALS: BMI 23.8
[2025-08-21 13:26] VITALS: BP 112/75; PULSE 87; RESP 16; TEMP 36.3; O2SAT 94
[2025-08-21] MEDS: Lactated Ringers 1,000 ML 100 ML IVCONT (13:48)
--- NOTE | 2025-08-21 13:58 | ECG_ITS ---
Test Reason : PREOP Blood Pressure : */* mmHG Vent. Rate : 75 BPM Atrial Rate : 75 BPM P-R Int : 154 ms QRS Dur : 68 ms QT Int : 384 ms P-R-T Axes : 74 41 99 degrees QTcB Int : 428 ms Normal sinus rhythm with sinus arrhythmia Nonspecific ST and T wave abnormality Abnormal ECG When compared with ECG of 26-Aug-2011 07:03, Nonspecific ST and T wave abnormality Present Referred By: Matt Marie Electronically Signed By: TREASURE MERCEDES
--- NOTE | 2025-08-21 15:15 | PC.NURSE ---
Dr. Marie updated that patient has productive cough with no sputum producation. LCTA. Okay to proceed, with no interventions per doctor marie.
[2025-08-21 16:34] VITALS: BP 108/61; PULSE 76; RESP 21; TEMP 36.1; O2SAT 96
--- NOTE | 2025-08-21 16:41 | P.OP_ITS ---
Operative Note Operative Note Date of Service: 08/21/25 Narrative: Operative note by [facility] PREOPERATIVE DIAGNOSIS: Headache and vision loss. POSTOPERATIVE DIAGNOSIS: Headache and vision loss. PROCEDURE PERFORMED: Right temporal artery biopsy. SURGEON: Homero Gerard M.D. CARBON ROD INSERTER: Ismael GARNICA ANESTHESIA: Mac with sedation by Dr. Marie ESTIMATED BLOOD LOSS: Less than 10 mL. COMPLICATIONS: None. SPECIMENS: superficial temporal artery INDICATIONS FOR PROCEDURE: The patient is a 75-year-old patient with a history of headaches. ESR and CRP were elevated. She was originally seen in the emergency room for this temporal pain. The patient was referred to us for temporal artery biopsy to rule out temporal arteritis. The risks and benefits of the procedure were explained to the patient. The patient agreed to go forward with the surgery. DESCRIPTION OF PROCEDURE: The patient came to the operating room and was placed in the supine position on the operating room table. Patient was prepped and draped in the standard surgical fashion. Local was administered. After anesthesia was obtained, a vertical incision was made behind the hairline, approximately 4 cm in length. This was carried down through the superficial tissues. The superficial temporal artery was located superior to the temporalis fascia. The length of the artery was dissected free from the surrounding tissues. A mosquito clamp was used on the inferior extent to cross-clamp the artery. Another mosquito clamp was used to cross-clamp the artery superiorly. Approximately, 2.5 cm of artery was then cut from the surrounding tissue with scissors. This was sent for permanent pathology to rule out temporal arteritis. Sutures of 2-0 silk were then used to tie the distal and proximal ends of the artery. The wound was then thoroughly irrigated. There was no further bleeding. The wound was then closed in layered fashion using 3-0 Vicryl stitches, deep. The skin edges were then reapproximated with 4-0 Monocryl. The surgery was then completed. The patient was returned to recovery neurologically intact with stable vitals. This note is constructed using voice recognition software. While every effort has been made to ensure accuracy, transcription typist errors may have been included. Thank you for allowing me to participate in the care of your patient. Yours sincerely, Homero Gerard MD, FACS, R.P.V.I.
[2025-08-21 16:49] VITALS: BP 112/61; PULSE 67; RESP 12; TEMP 36.1; O2SAT 96
== END 2025-08-21 17:25 | disposition home or self-care (01) ==
PROVIDERS: PCP Internal Medicine; Visit Provider Surgery Vascular Surgery
PROC: (CPT 37609; principal; 2025-08-21 14:20)
DX: R51.9 Headache, unspecified (principal); H54.7 Unspecified visual loss; R70.0 Elevated erythrocyte sedimentation rate; R79.82 Elevated C-reactive protein (CRP); I10 Essential (primary) hypertension; E78.5 Hyperlipidemia, unspecified; E03.9 Hypothyroidism, unspecified; I49.9 Cardiac arrhythmia, unspecified; Z79.899 Other long term (current) drug therapy; Z87.891 Personal history of nicotine dependence
CPT/HCPCS: 37609; 88305; 93005; J0131; J0690; J1100; J2003; J2405; J2704; J2795; J3010

== ENCOUNTER → 2025-08-21 12:32 | Outpatient (BNV) | payer MEDICARE, BC, SELFPAY | PROVIDERS: PCP Internal Medicine; Visit Provider Surgery Vascular Surgery | DX: M31.6 Other giant cell arteritis (principal) | CPT/HCPCS: 37609 ==

== ENCOUNTER → 2025-08-21 13:58 | Outpatient (BNV) | payer MEDICARE, BC, SELFPAY | PROVIDERS: PCP Internal Medicine; Visit Provider Internal Medicine | DX: I49.9 Cardiac arrhythmia, unspecified (principal) | CPT/HCPCS: 93010 ==